=== PATIENT | male | born 1940 | race Caucasian/White ===

== ENCOUNTER → 2016-06-23 | Outpatient (REF) | payer MEDICARE, BC ==
[2016-06-23 18:13] LABS: ALBUMIN 3.9 GM/DL (3.2-5.2); ALBUMIN/GLOBULIN RATIO 1.26 (1.00-1.93); ALKALINE PHOSPHATASE 92 U/L (45-117); ALT/SGPT 46 U/L (12-78); ANION GAP 6 MEQ/L (8-16); AST/SGOT 15 U/L (15-37); BILIRUBIN,TOTAL 0.3 MG/DL (0.2-1.0); BLOOD UREA NITROGEN 22 MG/DL (7-18); CARBON DIOXIDE LEVEL 32 MEQ/L (21-32); CHLORIDE LEVEL 106 MEQ/L (98-107); CHOLESTEROL LEVEL 218 MG/DL (<200); CREATININE FOR GFR 0.74 MG/DL (0.70-1.30); GLOMERULAR FILTRATION RATE > 60.0 (>42); GLUCOSE, FASTING 99 MG/DL (83-110); MEAN CORPUSCULAR HEMOGLOBIN 31.7 pg (27.0-33.0); MEAN CORPUSCULAR HGB CONC 33.7 g/dl (32.0-36.5); MEAN CORPUSCULAR VOLUME 94.1 fl (80.0-96.0); POTASSIUM SERUM 4.8 MEQ/L (3.5-5.1); RED CELL DISTRIBUTION WIDTH 13.8 % (11.5-14.5); SODIUM LEVEL 144 MEQ/L (136-145); TRIGLYCERIDES LEVEL 111 MG/DL (<150); WHITE BLOOD COUNT 6.9 K/mm3 (4.0-10.0)
== END ==
LOC: M SFHCLERA 09:59
PROVIDERS: ATTEND Family Medicine
DX: I10 Essential (primary) hypertension (principal); E78.2 Mixed hyperlipidemia; M79.675 Pain in left toe(s)
CPT/HCPCS: 80053; 80061; 80185; 81001; 82043; 84550; 85027; G0463

== ENCOUNTER → 2016-09-21 | Outpatient (REF) | payer MEDICARE, BC ==
[2016-09-21 18:15] LABS: MEAN CORPUSCULAR HEMOGLOBIN 32.7 pg (27.0-33.0); MEAN CORPUSCULAR HGB CONC 33.5 g/dl (32.0-36.5); MEAN CORPUSCULAR VOLUME 97.6 fl (80.0-96.0); RED CELL DISTRIBUTION WIDTH 13.1 % (11.5-14.5); WHITE BLOOD COUNT 7.1 K/mm3 (4.0-10.0)
[2016-09-21 19:02] LABS: ALBUMIN 4.1 GM/DL (3.2-5.2); ALBUMIN/GLOBULIN RATIO 1.32 (1.00-1.93); ALKALINE PHOSPHATASE 88 U/L (45-117); ALT/SGPT 42 U/L (12-78); ANION GAP 5 MEQ/L (8-16); AST/SGOT 24 U/L (15-37); BILIRUBIN,TOTAL 0.3 MG/DL (0.2-1.0); BLOOD UREA NITROGEN 20 MG/DL (7-18); CALCIUM LEVEL 9.1 MG/DL (8.8-10.2); CARBON DIOXIDE LEVEL 35 MEQ/L (21-32); CHLORIDE LEVEL 103 MEQ/L (98-107); CHOLESTEROL LEVEL 235 MG/DL (<200); CREATININE FOR GFR 0.68 MG/DL (0.70-1.30); GLOMERULAR FILTRATION RATE > 60.0 (>42); GLUCOSE, FASTING 103 MG/DL (83-110); POTASSIUM SERUM 5.1 MEQ/L (3.5-5.1); SODIUM LEVEL 143 MEQ/L (136-145); TOTAL PROTEIN 7.2 GM/DL (6.4-8.2); TRIGLYCERIDES LEVEL 153 MG/DL (<150)
== END ==
LOC: M SFHCLERA 10:51
PROVIDERS: ATTEND Family Medicine
DX: E78.2 Mixed hyperlipidemia (principal); Z86.69 Personal history of other diseases of the nervous system and sense organs
CPT/HCPCS: 80053; 80061; 80185; 85027; G0463

== ENCOUNTER → 2016-11-09 | Outpatient (CLI) | payer MEDICARE, BC ==
[2016-11-09 16:59] LABS: BASO # 0.1 K/mm3 (0.0-0.2); BASO % 0.9 % (0.0-1.0); EOS # 0.5 K/mm3 (0.0-0.50); EOS % 6.2 % (0.0-3.0); LARGE UNSTAINED CELL # 0.1 K/mm3 (0.0-0.4); LARGE UNSTAINED CELL % 1.3 % (0.0-4.0); LYMPH # 2.3 K/mm3 (1.5-4.5); LYMPH % 27.8 % (24.0-44.0); MEAN CORPUSCULAR HEMOGLOBIN 33.1 pg (27.0-33.0); MEAN CORPUSCULAR HGB CONC 34.6 g/dl (32.0-36.5); MEAN CORPUSCULAR VOLUME 95.5 fl (80.0-96.0); MONO # 0.4 K/mm3 (0.0-0.8); MONO % 4.6 % (0.0-5.0); NEUTROPHILS # 4.8 K/mm3 (1.8-7.7); NEUTROPHILS % 59.1 % (36.0-66.0); PLATELET COUNT, AUTOMATED 222 k/mm3 (150-450)
[2016-11-09 17:10] LABS: ALBUMIN 3.8 GM/DL (3.2-5.2); ALBUMIN/GLOBULIN RATIO 1.15 (1.00-1.93); ALKALINE PHOSPHATASE 83 U/L (45-117); ALT/SGPT 52 U/L (12-78); ANION GAP 7 MEQ/L (8-16); AST/SGOT 29 U/L (15-37); BILIRUBIN,TOTAL 0.3 MG/DL (0.2-1.0); BLOOD UREA NITROGEN 18 MG/DL (7-18); CALCIUM LEVEL 8.5 MG/DL (8.8-10.2); CARBON DIOXIDE LEVEL 29 MEQ/L (21-32); CHLORIDE LEVEL 104 MEQ/L (98-107); CHOLESTEROL LEVEL 131 MG/DL (<200); CREATININE FOR GFR 0.74 MG/DL (0.70-1.30); GLOMERULAR FILTRATION RATE > 60.0 (>42); GLUCOSE, FASTING 91 MG/DL (83-110); SODIUM LEVEL 140 MEQ/L (136-145); TOTAL PROTEIN 7.1 GM/DL (6.4-8.2); TRIGLYCERIDES LEVEL 78 MG/DL (<150)
== END ==
LOC: M LRY 11:50
PROVIDERS: ATTEND Psychiatry & Neurology Neurology
DX: Z51.81 Encounter for therapeutic drug level monitoring (principal); Z79.899 Other long term (current) drug therapy; R56.9 Unspecified convulsions; E78.00 Pure hypercholesterolemia, unspecified; I63.9 Cerebral infarction, unspecified
CPT/HCPCS: 36415; 80053; 80061; 80185; 85025; G0463

== ENCOUNTER 2017-01-01 13:15 | Inpatient (IN) | payer MEDICARE, BC ==
[~2017-01-01] VITALS: Ht 165.1 cm; Wt 69.5 kg
[2017-01-01 14:38] LABS: BASO # 0.1 K/mm3 (0.0-0.2); BASO % 1.1 % (0.0-1.0); EOS # 0.4 K/mm3 (0.0-0.50); EOS % 7.3 % (0.0-3.0); LARGE UNSTAINED CELL # 0.2 K/mm3 (0.0-0.4); LARGE UNSTAINED CELL % 2.5 % (0.0-4.0); LYMPH # 1.5 K/mm3 (1.5-4.5); LYMPH % 24.4 % (24.0-44.0); MEAN CORPUSCULAR HEMOGLOBIN 32.7 pg (27.0-33.0); MEAN CORPUSCULAR HGB CONC 34.8 g/dl (32.0-36.5); MEAN CORPUSCULAR VOLUME 93.7 fl (80.0-96.0); MONO # 0.5 K/mm3 (0.0-0.8); MONO % 7.3 % (0.0-5.0); NEUTROPHILS # 3.6 K/mm3 (1.8-7.7); NEUTROPHILS % 57.4 % (36.0-66.0); PLATELET COUNT, AUTOMATED 227 k/mm3 (150-450); RED CELL DISTRIBUTION WIDTH 12.8 % (11.5-14.5); WHITE BLOOD COUNT 6.2 K/mm3 (4.0-10.0)
[2017-01-01 14:59] LABS: ALBUMIN 3.3 GM/DL (3.2-5.2); ALBUMIN/GLOBULIN RATIO 1.06 (1.00-1.93); ALKALINE PHOSPHATASE 97 U/L (45-117); ALT/SGPT 39 U/L (12-78); ANION GAP 6 MEQ/L (8-16); AST/SGOT 21 U/L (15-37); BILIRUBIN,DIRECT < 0.1 MG/DL (0.0-0.2); BILIRUBIN,TOTAL 0.2 MG/DL (0.2-1.0); BLOOD UREA NITROGEN 20 MG/DL (7-18); CALCIUM LEVEL 8.4 MG/DL (8.8-10.2); CARBON DIOXIDE LEVEL 30 MEQ/L (21-32); CHLORIDE LEVEL 104 MEQ/L (98-107); CREATININE FOR GFR 0.77 MG/DL (0.70-1.30); GLOMERULAR FILTRATION RATE > 60.0 (>42); GLUCOSE, FASTING 124 MG/DL (83-110); MAGNESIUM LEVEL 2.4 MG/DL (1.8-2.4); POTASSIUM SERUM 3.5 MEQ/L (3.5-5.1); SODIUM LEVEL 140 MEQ/L (136-145); TOTAL PROTEIN 6.4 GM/DL (6.4-8.2)
--- NOTE | 2017-01-01 18:10 | REPUSA ---
CLINICAL HISTORY: DIZZINESS, AMS, ATAXIA TECHNIQUE: MRI of the brain was performed without administration of intravenous contrast material. T1 spine echo, T2 fast spin echo, DWI and FLAIR sequences were obtained in sagittal, axial and coronal planes. FINDINGS: There is evidence of extensive encephalomalacia involving left temporal, parietal and frontal lobes w ith diffusely increase T2/Flair hyperintensity, T1 hypointensity and ex-vacuo dilatation of the right lateral ventricle, compatible with chronic infarct, left MCA distribution. The sella and parasellar regions are unremarkable in appearance. The corpus callosum and cerebellar tonsils are of normal con figuration and position. There are no intra or extra-axial collections. There is no mass effect or mi dline shift. There is no evidence of hematoma formation. There is no hydrocephalus. There is no restricted diffusion. There is evidence for generalized symmetrical dilatation of the ventricles and cortical sulci consist ent with parenchymal atrophy. There are bilateral periventricular T2 and FLAIR hyperintensities extending into centrum semi ovale c ompatible with chronic white matter ischemic disease. The brain stem shows no mass effects or hemorrhage. There are no cerebellopontine tumors. The acousti c nerves are symmetrical. No cerebellar intra-axial pathology delineated. The fourth ventricle and aq ueduct are normal. No abnormalities of the optic nerves are identified. There is no evidence of atrop hic or degenerative changes. No dural or subdural masses or collections are detected. The visualized arterial structures demonstrate normal appearing flow voids. The VII and VIII nerve bu ndles are visualized and are unremarkable in appearance. Mucosal thickening is seen involving all bilateral sinuses compatible with chronic pansinusitis. IMPRESSION: 1. Old left MCA infarct. 2. Generalized age-appropriate parenchymal atrophy. 3. Bilateral periventricular and subcortical white matter ischemic changes. 4. Chronic pansinusitis. Thank you for your kind referral of this patient.
--- NOTE | 2017-01-01 18:10 | REPUSA ---
CLINICAL HISTORY: -DIZZINESS, AMS, ATAXIA TECHNIQUE: Three dimensional feit-nx-dxkvim angiography is performed of the squaxin of [place]. The janiya dy was performed without IV contrast agent. FINDINGS: The supraclinoid portions of the internal carotid arteries are of normal shape. The normal bifurcation is seen. The middle cerebral arteries are unremarkable in appearance. The posterior circu lation is visualized and shows no evidence of occlusion or aneurysm formation. The basilar tip is see n and shows no aneurysm formation. There is no evidence of beading to suggest vasculitis. IMPRESSION: MRA of the squaxin of [place] is within normal limits. Thank you for your kind referral of this patient.
[2017-01-01 18:43] LABS: METHADONE URINE NEGATIVE (NEGATIVE)
[2017-01-01] MEDS ORDERED: ACETAMINOPHEN TAB 650MG DOSE (2X325MG) PO PRN (19:45)
[2017-01-01] MEDS ORDERED: GABA-282 PO (19:54)
[2017-01-01] MEDS ORDERED: ASPI1TAB15 PO (19:54)
[2017-01-01] MEDS ORDERED: ROPI1TAB PO (19:54)
[2017-01-01] MEDS ORDERED: SIMB1SUS OU (19:54)
[2017-01-01] MEDS ORDERED: NAME10TA PO (19:54)
[2017-01-01] MEDS ORDERED: IPRASOL4 INH (19:54)
[2017-01-01] MEDS ORDERED: BIMA01SOL OU (19:54)
[2017-01-01] MEDS ORDERED: ATOR80TA59 PO (19:54)
[2017-01-01] MEDS ORDERED: GALA12TA PO (19:54)
[2017-01-01] MEDS ORDERED: ALEV220T26 PO (19:54)
[2017-01-01] MEDS ORDERED: SPIR1CAP INH (19:54)
[2017-01-01] MEDS: cefTRIAXone SOD 2 GM in D5W MINI-BAG PLUS 50 ML IV SCH (20:00)
[2017-01-01] MEDS ORDERED: LevoFLOXacin IV 500 MG in APPROPRIATE DILUENT 1 EA IV SCH (20:00)
[2017-01-01] MEDS ORDERED: NS 1,000 ML IV SCH (20:00)
--- NOTE | 2017-01-01 20:06 | REP ---
CT BRAIN WITHOUT CONTRAST: CT brain is performed without IV contrast. I have no prior CT for comparison. There is a prior MRI of the brain 12/31/2014. There is moderate atrophy. There are again areas of encephalomalacia throughout the left cerebral hemisphere, most prominently in the left posterior parietal region and the left frontal region. Chronic periventricular small vessel ischemic changes and gliosis are again noted. There is no acute hemorrhage or midline shift. No extra-axial fluid collection is seen. There is evidence of prior surgery in the left orbital region. No acute skull fracture is seen. Scattered fluid is seen in the bilateral ethmoid sinuses. IMPRESSION: Chronic atrophy and old areas of encephalomalacia on the left. No acute hemorrhage. Bilateral ethmoid fluid. No acute findings. Signed by Bear Enrique MD 01/02/2017 01:05 P
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
[2017-01-01] MEDS ORDERED: IPRATROPIUM 0.5MG/ALBUTEROL 2.5MG INH SOL UD 3ML (DUONEB)(J7620) INH PRN (20:15)
[2017-01-01 21:30] VITALS: BP 157/73
[2017-01-01] MEDS: PHENYTOIN ER 100 MG CAP PO SCH (22:42)
[2017-01-01] MEDS: AZITHROMYCIN INJ 500 MG, VIAL MATE ADAPTER 1 EACH in D5W 250 ML IV SCH (22:42)
[2017-01-01] MEDS: rOPINIRole 1MG TAB PO SCH (22:42)
[2017-01-01] MEDS: GABAPENTIN 100 MG CAP PO SCH (22:43)
[2017-01-01] MEDS: HEPARIN SOD (PORCINE) 5000 UNITS/ML VIAL SQ SCH (22:43)
[2017-01-02] VITALS (7 sets, daily range): BP systolic 117–154; BP diastolic 57–76
--- NOTE | 2017-01-02 00:35 | REP ---
Clinical: Chest pain. Dyspnea. Rule out pneumonia . Comparison: 11/18/2014 . Findings: The mediastinum and cardiac silhouette are stable and within normal limits for portable technique. The lung tucker are clear without acute consolidation, effusion, or pneumothorax. Skeletal structures are intact. Chronic elevation of the right hemidiaphragm remains stable. Impression: No acute cardiopulmonary process appreciated. Signed by Cliff Montano MD 01/02/2017 12:27 A
[2017-01-02] MEDS: HEPARIN SOD (PORCINE) 5000 UNITS/ML VIAL SQ SCH ×3 (05:05→20:30)
[2017-01-02 06:16] LABS: BASO # 0.1 K/mm3 (0.0-0.2); BASO % 0.9 % (0.0-1.0); EOS # 0.4 K/mm3 (0.0-0.50); EOS % 5.3 % (0.0-3.0); LARGE UNSTAINED CELL # 0.1 K/mm3 (0.0-0.4); LARGE UNSTAINED CELL % 1.6 % (0.0-4.0); LYMPH # 1.7 K/mm3 (1.5-4.5); LYMPH % 22.1 % (24.0-44.0); MEAN CORPUSCULAR HEMOGLOBIN 33.1 pg (27.0-33.0); MEAN CORPUSCULAR HGB CONC 34.8 g/dl (32.0-36.5); MONO # 0.5 K/mm3 (0.0-0.8); MONO % 6.4 % (0.0-5.0); NEUTROPHILS # 4.5 K/mm3 (1.8-7.7); NEUTROPHILS % 63.6 % (36.0-66.0); PLATELET COUNT, AUTOMATED 219 k/mm3 (150-450); RED CELL DISTRIBUTION WIDTH 13.1 % (11.5-14.5); WHITE BLOOD COUNT 7.1 K/mm3 (4.0-10.0)
[2017-01-02 06:31] LABS: ALBUMIN 3.2 GM/DL (3.2-5.2); ALBUMIN/GLOBULIN RATIO 0.94 (1.00-1.93); ALKALINE PHOSPHATASE 93 U/L (45-117); ALT/SGPT 35 U/L (12-78); ANION GAP 5 MEQ/L (8-16); AST/SGOT 15 U/L (15-37); BILIRUBIN,TOTAL 0.3 MG/DL (0.2-1.0); BLOOD UREA NITROGEN 16 MG/DL (7-18); CALCIUM LEVEL 8.6 MG/DL (8.8-10.2); CARBON DIOXIDE LEVEL 31 MEQ/L (21-32); CHLORIDE LEVEL 106 MEQ/L (98-107); CREATININE FOR GFR 0.62 MG/DL (0.70-1.30); GLOMERULAR FILTRATION RATE > 60.0 (>42); GLUCOSE, FASTING 105 MG/DL (83-110); MAGNESIUM LEVEL 2.2 MG/DL (1.8-2.4); POTASSIUM SERUM 3.8 MEQ/L (3.5-5.1); SODIUM LEVEL 142 MEQ/L (136-145); TOTAL PROTEIN 6.6 GM/DL (6.4-8.2)
[2017-01-02] MEDS: TIOTROPIUM INHALER/CAPSULE (SPIRIVA) INH SCH ×2 (07:56→09:09)
--- NOTE | 2017-01-02 08:19 | ECGEPIP ---
Stationary ECG Study [facility] - ED Test Date: 2017-01-01 Pat Name: TOMAS ALEXIS Department: Room: - Gender: M Manager Heart: JOE : 1940 Requested By: Lisha Burnham Order Number: [id number] Reading MD: Filiberto Bee Measurements Intervals [place] Rate: 66 P: 49 KS: 186 QRS: 40 QRSD: 116 T: 39 QT: 439 QTc: 461 Interpretive Statements SINUS RHYTHM MODERATE INTRAVENTRICULAR CONDUCTION DELAY POSSIBLE INFERIOR INFARCT Electronically Signed On 01-02-2017 8:18:32 EDT by Filiberto Bee
[2017-01-02] MEDS: ASPIRIN 81 MG ENTERIC TAB PO SCH (09:26)
[2017-01-02] MEDS: GABAPENTIN 100 MG CAP PO SCH ×3 (09:26→20:29)
[2017-01-02] MEDS: ATORVASTATIN 20 MG TAB PO SCH (09:26)
[2017-01-02] MEDS: MEMANTINE 5MG TABLET (NAMENDA) PO SCH (09:27)
[2017-01-02] MEDS: PHENYTOIN ER 100 MG CAP PO SCH ×2 (09:27→20:28)
[2017-01-02] MEDS: rOPINIRole 1MG TAB PO SCH ×2 (09:27→20:28)
[2017-01-02 10:00] LABS: FOLATE > 24.0 NG/ML (>5.4); VITAMIN B12 LEVEL 321 PG/ML (247-911)
--- NOTE | 2017-01-02 11:46 | IPN ---
DATE: 01/02/2017 Time patient was seen was 10:00 a.m. Patient has been seen and examined at the bedside. No acute events overnight. The patient stated that he has been feeling less dizzy recently. He denies any headache or any blurred vision, any weakness on any side of his body. Denies any trouble swallowing, having normal bowel movements and urinates normally. Denies any polyuria, urgency or dysuria. PHYSICAL EXAMINATION: VITAL SIGNS: Temperature 97.5, pulse 73, respirations 17, blood pressure 152/76 , oxygen was saturating at 93% on room air. GENERAL: Patient is a pleasant elderly male who was alert, awake and oriented times three. He does not appear to be in distress. Sitting in comfortably in his bed. HEENT: Normocephalic, atraumatic. Both of the patient's eyes appear to be deviated to the center, according to the patient since childhood. Pupils were equal, round and reactive to light. Extraocular motors appear to be better on the right side. Mucosal membranes moist. NECK: Supple. No neck lymphadenopathy. CARDIOVASCULAR: Regular rate and rhythm, normal S1 and S2. Distant heart sounds due to increased AP diameter. LUNGS: Clear to auscultation bilaterally. No wheezing, rales or rhonchi. ABDOMEN: Positive bowel sounds. Soft, nontender, nondistended. No peritoneal signs. No ecchymosis. EXTREMITIES: No edema, clubbing or cyanosis. SKIN: Warm and dry. NEURO: Cranial nerves II through XII intact except the chronic eyes deviated to the center. LABORATORIES: WBC 7.1, hemoglobin 14.1, hematocrit 41.4 with platelet count of 219, and MCV of 95. Sodium 142, potassium 3.8, chloride 106, bicarb 31, BUN 16, creatinine 0.62, GFR greater than 60, fasting glucose 105, calcium 8.6, magnesium 2.2, total bilirubin is 0.3, AST 15, ALT 35, alkaline phosphatase 93. Ammonia level was slightly elevated yesterday, which was 45. Protein 6.6, albumin 3.2. Urinalysis shows a small amorphous sediment. Toxicology shows phenytoin low at 6.5. Syphilis has been nonreactive. Lyme disease IgG to IgM ratio is pending. Lyme IgG 93, band is pending. Blood cultures times two are pending. Portable chest x-ray does not show any acute processes from yesterday. MRI yesterday shows old left MCA infarct, generalized age appropriate parenchymal atrophy, bilateral periventricular and subcortical white matter ischemic changes. Chronic pansinusitis. ASSESSMENT/PLAN: 76-year-old male with a past medical history of hypertension, hyperlipidemia, recurrent cerebrovascular accidents (CVAs), seizures on dilantin, macular degeneration, glaucoma and dementia, and also eyes deviated to the center since 3 years old, who presented with: 1. Dizziness, confusion and slurred speech, metabolic encephalopathy possibly secondary to infection, Lyme disease. At this point there is no indication for pneumonia. Chest x-ray has been clear. The patient's Lyme titer is pending. MRI does show chronic pansinusitis and there was an old left sided MCA infarction shown on the MRI of the head. The patient is currently on Rocephin and azithromycin for possible pneumonia, however due to chest x-ray has been negative, will consider discontinuing the antibiotics once the blood culture comes back negative. So far, the patient does not have any leukocytosis or fever. The patient's urinalysis has been negative as well. TSH, free T4, T3, syphilis, B12 , and folate, have been negative as well. The patient's gabapentin was reduced from 300 three times a day to 100 three times a day on admission. In addition, admission physician also discussed with Dr. Lito Bah on admission. The patient has workup for reversible causes of encephalopathy. We have also added a carotid Doppler ultrasound this morning. Physical therapy has been started as well. betsy Knott neurology was officially consulted later in the morning. We appreciate his help. 2. Normocytic anemia. Hemoglobin appears to be at baseline. 3. Hypertension. Blood pressure appears to be controlled. 4. History of dementia. Continue memantine and ropinirole. 5. History of recurrent CVAs. Currently, the patient does not have any new neurological findings. The confusion, slurred speech and dizziness has resolved. 6. History of seizures. Continue dilantin. It was sub therapeutic on the last check. 7. History of chronic obstructive pulmonary disease (COPD). Continue Spiriva and DuoNebs. Patient is also on IV azithromycin for now due to possible pneumonia; however, will likely discontinue soon after blood culture comes back. 8. Deep vein thrombosis (DVT) prophylaxis. On sequential compression devices (SCD) and heparin. DISPOSITION: At this point, the patient has a negative workup. Lyme disease workup is pending. There is no acute infarction shown on MRI. The patient's x-ray and urinalysis appears to be negative. Once the patient's blood culture comes back negative, will discontinue antibiotics and will follow neurology recommendations. Patient has been discussed with attending doctor, Dr. Whelan. I have both independently examined this patient as well as reviewed the dictated note. I have discussed in detail with the resident the findings and plan of treatment as documented in the residents note. I will continue to follow the patient and offer further guidance to the patients care as necessary during this hospital stay. GIANNA
[2017-01-02] MEDS: MECLIZINE 12.5 MG TAB PO SCH (20:28)
[2017-01-02] MEDS: AZITHROMYCIN INJ 500 MG, VIAL MATE ADAPTER 1 EACH in D5W 250 ML IV SCH (20:29)
[2017-01-02] MEDS: cefTRIAXone SOD 2 GM in D5W MINI-BAG PLUS 50 ML IV SCH (20:29)
[2017-01-03 02:00] VITALS: BP 144/79
--- NOTE | 2017-01-03 05:15 | REP ---
Clinical: Transient ischemic attack . Technique: Enrique scale and color Doppler evaluation using linear high frequency transducer Findings: Two-dimensional enrique scale and color images demonstrate moderate to significant bilateral mixed atheromatous plaquing along the common carotid arteries extending to the carotid bulbs and proximal/mid internal carotid arteries (left greater than right). Color Doppler interrogation demonstrates normal arterial wave patterns with the areas of increased velocities and moderate to significant spectral broadening. Normal flow direction is appreciated in the bilateral vertebral arteries. RIGHT (cm/s) LEFT (cm/s) ICA peak systolic velocity 79.0 166.2 ICA diastolic velocity 24.9 53.4 ECA peak systolic velocity 70.0 76.0 CCA peak systolic velocity 89.5 91.4 ICA/CCA ratio 0.88 1.82 Impression: Based on set standards visual inspection, narrowing falls within the 50-69% range through the left carotid bulb/internal carotid artery and approaches the 50% range through the right carotid bulb/internal carotid artery. Signed by Cliff Montano MD 01/03/2017 05:07 A
[2017-01-03 05:45] LABS: BASO # 0.1 K/mm3 (0.0-0.2); BASO % 1.2 % (0.0-1.0); EOS # 0.5 K/mm3 (0.0-0.50); EOS % 7.2 % (0.0-3.0); LARGE UNSTAINED CELL # 0.1 K/mm3 (0.0-0.4); LARGE UNSTAINED CELL % 1.9 % (0.0-4.0); LYMPH # 1.8 K/mm3 (1.5-4.5); LYMPH % 25.4 % (24.0-44.0); MEAN CORPUSCULAR HEMOGLOBIN 33.6 pg (27.0-33.0); MEAN CORPUSCULAR HGB CONC 35.1 g/dl (32.0-36.5); MEAN CORPUSCULAR VOLUME 95.7 fl (80.0-96.0); MONO # 0.4 K/mm3 (0.0-0.8); MONO % 5.7 % (0.0-5.0); NEUTROPHILS % 58.7 % (36.0-66.0); PLATELET COUNT, AUTOMATED 225 k/mm3 (150-450); RED CELL DISTRIBUTION WIDTH 13.2 % (11.5-14.5); WHITE BLOOD COUNT 6.8 K/mm3 (4.0-10.0)
[2017-01-03 06:00] VITALS: BP 139/69
[2017-01-03] MEDS: HEPARIN SOD (PORCINE) 5000 UNITS/ML VIAL SQ SCH ×2 (06:18→13:42)
[2017-01-03] MEDS: TIOTROPIUM INHALER/CAPSULE (SPIRIVA) INH SCH (07:12)
[2017-01-03] MEDS: ATORVASTATIN 20 MG TAB PO SCH (08:31)
[2017-01-03] MEDS: MEMANTINE 5MG TABLET (NAMENDA) PO SCH (08:31)
[2017-01-03] MEDS: rOPINIRole 1MG TAB PO SCH (08:31)
[2017-01-03 08:32] LABS: ALBUMIN 3.2 GM/DL (3.2-5.2); ALBUMIN/GLOBULIN RATIO 0.84 (1.00-1.93); ALKALINE PHOSPHATASE 99 U/L (45-117); ALT/SGPT 35 U/L (12-78); ANION GAP 7 MEQ/L (8-16); AST/SGOT 23 U/L (15-37); BILIRUBIN,TOTAL 0.2 MG/DL (0.2-1.0); BLOOD UREA NITROGEN 15 MG/DL (7-18); CALCIUM LEVEL 8.8 MG/DL (8.8-10.2); CARBON DIOXIDE LEVEL 27 MEQ/L (21-32); CHLORIDE LEVEL 104 MEQ/L (98-107); CREATININE FOR GFR 0.63 MG/DL (0.70-1.30); GLOMERULAR FILTRATION RATE > 60.0 (>42); GLUCOSE, FASTING 105 MG/DL (83-110); MAGNESIUM LEVEL 2.3 MG/DL (1.8-2.4); SODIUM LEVEL 138 MEQ/L (136-145)
[2017-01-03] MEDS: GABAPENTIN 100 MG CAP PO SCH (08:32)
[2017-01-03] MEDS: MECLIZINE 12.5 MG TAB PO SCH (08:32)
[2017-01-03] MEDS: ASPIRIN 81 MG ENTERIC TAB PO SCH (08:32)
[2017-01-03] MEDS: PHENYTOIN ER 100 MG CAP PO SCH (08:32)
[2017-01-03 10:00] VITALS: BP 134/60
[2017-01-03] MEDS ORDERED: DILA100C PO (12:34)
[2017-01-03] MEDS ORDERED: MECL12.575 PO (12:34)
[2017-01-03] MEDS ORDERED: NEUR100C PO (12:44)
--- NOTE | 2017-01-03 13:44 | DSES ---
DATE OF ADMISSION: 01/01/2017 DATE OF DISCHARGE: 01/03/2017 Time patient was seen was at 12 p.m. ADMISSION DIAGNOSES: 1. Acute metabolic encephalopathy. 2. Normocytic anemia. 3. Hypertension. 4. Hyperlipidemia. 5. History of cerebrovascular accident (CVA). 6. History of seizure. 7. History of Parkinson's and dementia. 8. History of chronic obstructive pulmonary disease (COPD). DISCHARGE DIAGNOSES: 1. Dizziness, confusion, and slurred speech. Likely secondary to metabolic encephalopathy. 2. Normocytic anemia. 3. Hypertension. 4. History of dementia. 5. History of recurrent cerebrovascular accident. 6. History of seizures. 7. Chronic obstructive pulmonary disease. 8. The patient also has carotid stenosis. SURFACE SUPERVISOR: Is Dr. Mondragon from neurology. PROCEDURES AND IMAGINGS: On 12/30/2016, the patient had a head CT without contrast, which shows chronic atrophy and old area of encephalomalacia on the left side. No acute hemorrhage. Bilateral ethmoid fluid. No acute findings. On 01/01/2017, the patient had an MRA of the head, shows MRA of the [place] of [place] is within normal limits. At this time, the patient also had an MRI of the head without contrast, shows old left middle cerebral artery (MCA) infarct, generalized age-appropriate parenchymal atrophy, bilateral periventricular and subcortical white matter ischemic changes, chronic pansinusitis. Portable x-ray shows the patient has no acute cardiopulmonary process. On 01/02/2017, the patient had a carotid Doppler of the bilateral carotids, shows narrowing falls within the 50% to 69% range through the left carotid bulb/internal carotid artery and approaching the 50% range through the right carotid bulb/internal carotid artery. A 76-year-old male with past medical history of hypertension, hyperlipidemia, CVA, seizure, macular degeneration, glaucoma, dementia, presented to the emergency room (ER) with complaint of slurred speech and confusion. Per the patient's daughter and at bedside to provide detailed history, he has been noted to have unstable gait since . They noticed he was more confused and could not remember details of the day earlier. One month ago, he was in the ER for confusion and found to have a Dilantin toxicity. His dose was adjusted, and his symptoms resolved, and he was sent home. Today, he denies any fever, chills. No nausea, vomiting, chest pain, shortness of breath, or palpitations. No abdominal pain, constipation, or urinary discomfort. He does note a productive cough with green sputum one month ago and does admit to some loose stools were noticed, and his diet has been fine. He reports 5 pounds of weight loss in two months, however. HOSPITAL COURSE: On day of admission, the patient had a CT and MRA of the head ordered and does not show any acute infarctions. The patient's Dilantin level was found to be low. The patient's gabapentin was reduced from 300 three times a day to 100 three times a day. The patient was on Rocephin and azithromycin initially, and it was discontinued after a negative blood culture. Neurologist, Dr. Mondragon, was consulted and recommended to keep the Dilantin dose the same and added meclizine 12.5 mg by mouth twice a day to the patient's medications. On 01/03/2017, the patient passed physical therapy, and Dr. Mondragon was contacted and agreed that the patient can be discharged. DISCHARGE CONDITION: Stable. Discharged to home. MEDICATIONS: Including new prescriptions: - gabapentin 100 mg three times a day - meclizine 12.5 mg one tablet by mouth twice a day - phenytoin 200 mg one tablet by mouth twice a day Continued home medications including: - DuoNebs one inhalation every 4 hours as needed - aspirin 81 mg one tablet by mouth every day - atorvastatin 80 mg one tablet by mouth every day - Lumigan one drop each eye nightly - galantamine 24 mg one tablet by mouth every day - memantine 20 mg one tablet by mouth every day - naproxen 220 mg one tablet by mouth every 8 hours as needed - ropinirole 1 mg one tablet by mouth twice a day - Simbrinza eyedrop each eye every day - Spiriva one inhalation every day Stopped medications including: - gabapentin 300 mg by mouth every day FOLLOWUP: The patient should followup with primary care provider, Dr. Wagner, as soon as possible, and the patient should followup with neurologist, Dr. Mondragon, within 2-4 weeks. ADDITIONAL INSTRUCTIONS: The patient should avoid driving and should be under care of a family relative for the next few days. If the patient has any additional dizziness or neurological findings, he should go to the emergency room or call primary care provider. The patient has been discussed with attending doctor, Dr. Rodriguez. My preceptor for this patient encounter was Dr. Naveed Rodriguez. The preceptor was physically present in the building during the encounter and was fully available. As needed, all aspects of the patient interview, examination, medical decision making process, and medical care plan development were reviewed and approved by the preceptor. The preceptor is aware and concurs with the plan as stated in the body of this note and will attest to such by his/her cosignature. Edited: roger 01/05/2017 1517 MTDD
[2017-01-04 00:09] LABS: IgG P18 AB Absent (.); IgG P23 AB Absent (.); IgG P28 AB Absent (.); IgG P30 AB Absent (.); IgG P41 AB Absent (.); IgG P45 AB Absent (.); IgG P58 AB Absent (.); IgG P66 AB Absent (.); IgG P93 AB Absent (.); IgM P39 AB Absent (.); IgM P41 AB Absent (.); Lyme Disease IgG/IgM Antibodie <0.91 ISR (0.00-0.90); Lyme Disease IgM Ab Quantitati <0.80 index (0.00-0.79)
== END 2017-01-03 14:31 | disposition home or self-care (01) | DRG 72 ==
LOC: M ED 14:57 → M ED INP 19:36 → M MSPAV 21:28
PROVIDERS: ADMIT Internal Medicine; ATTEND Internal Medicine
DX: G93.41 Metabolic encephalopathy (principal); F03.90 Unspecified dementia, unspecified severity, without behavioral disturbance, psychotic disturbance, mood disturbance, and anxiety; G20 Parkinson's disease; J44.9 Chronic obstructive pulmonary disease, unspecified; D64.9 Anemia, unspecified; I10 Essential (primary) hypertension; I65.23 Occlusion and stenosis of bilateral carotid arteries; Z86.73 Personal history of transient ischemic attack (TIA), and cerebral infarction without residual deficits; E78.5 Hyperlipidemia, unspecified; H40.9 Unspecified glaucoma; H35.30 Unspecified macular degeneration; Z79.82 Long term (current) use of aspirin; Z79.899 Other long term (current) drug therapy; Z88.8 Allergy status to other drugs, medicaments and biological substances; Z87.891 Personal history of nicotine dependence

== ENCOUNTER → 2017-01-12 | Outpatient (REF) | payer OTHER ==
[~2017-01-12] MED LIST: ACET30TAB PO; ALEV220T26 PO; ASPI1TAB15 PO; ATOR80TA59 PO; BIMA01SOL OU; DILA100C PO; GABA-282 PO; GALA12TA PO; IPRASOL4 INH; MECL12.575 PO; NAME10TA PO; NEUR100C PO; ROPI1TAB PO; SIMB1SUS OU; SPIR1CAP INH
[2017-01-12 21:04] LABS: MEAN CORPUSCULAR HEMOGLOBIN 32.2 pg (27.0-33.0); MEAN CORPUSCULAR HGB CONC 33.7 g/dl (32.0-36.5); MEAN CORPUSCULAR VOLUME 95.6 fl (80.0-96.0); MICROSCOPIC INDICATED? MAN YES (NO); RED CELL DISTRIBUTION WIDTH 13.3 % (11.5-14.5); WHITE BLOOD COUNT 7.7 K/mm3 (4.0-10.0)
[2017-01-12 21:08] LABS: ALBUMIN 3.5 GM/DL (3.2-5.2); ALBUMIN/GLOBULIN RATIO 1.17 (1.00-1.93); ALKALINE PHOSPHATASE 90 U/L (45-117); ALT/SGPT 35 U/L (12-78); ANION GAP 8 MEQ/L (8-16); AST/SGOT 23 U/L (15-37); BILIRUBIN,TOTAL 0.2 MG/DL (0.2-1.0); BLOOD UREA NITROGEN 18 MG/DL (7-18); CALCIUM LEVEL 8.9 MG/DL (8.8-10.2); CARBON DIOXIDE LEVEL 31 MEQ/L (21-32); CHLORIDE LEVEL 104 MEQ/L (98-107); CREATININE FOR GFR 0.75 MG/DL (0.70-1.30); FREE T4 0.92 NG/DL (0.76-1.46); GLOMERULAR FILTRATION RATE > 60.0 (>42); GLUCOSE, FASTING 75 MG/DL (83-110); SODIUM LEVEL 143 MEQ/L (136-145); TOTAL PROTEIN 6.5 GM/DL (6.4-8.2)
[2017-01-12 21:23] LABS: BACTERIA, URINE NONE SEEN; SQUAMOUS EPITHELIAL CELL URINE LARGE AMOUNT /hpf (SMALL AMT)
[2017-01-12 21:24] LABS: HYALINE CAST, URINE 0-1 /lpf (0-1); MICROSCOPIC EXAM PERFORMED
== END ==
LOC: M SFHCLERA 14:20
PROVIDERS: ATTEND Family Medicine
DX: R42 Dizziness and giddiness (principal)
CPT/HCPCS: 80053; 80185; 81000; 81015; 84439; 84443; 85027; 87086; G0463

== ENCOUNTER 2017-02-22 20:38 | Emergency (ER) | payer OTHER ==
[~2017-02-22] VITALS: Ht 170.2 cm; Wt 70.5 kg
[~2017-02-22 20:38] MED LIST changes: -ACET30TAB PO
--- NOTE | 2017-02-22 23:10 | REPUSA ---
Clinical history: Pain, swelling. Findings: The right common femoral, superficial femoral, popliteal, and other deep venous structures compress normally and demonstrate normal color Doppler flow. Normal venous waveforms with augmentatio n are seen. Varicose veins are seen in the medial aspect of the knee joint. Impression: No evidence of deep vein thrombosis in the right femoral popliteal venous system.
[2017-02-22] MEDS ORDERED: ACET30TAB PO (23:35)
[2017-02-22] MEDS ORDERED: ACETAMINOPH W/CODEINE #3 TAB UD PO ONE (23:45)
[2017-02-23 00:25] VITALS: BP 144/70
--- NOTE | 2017-02-23 07:52 | REP ---
Clinical: Pain. Technique: AP and frog lateral views of the right femur. Findings: Evidence for prior open reduction and fixation for femoral neck fracture. Degenerative changes at the hip and knee joint are appreciated. No acute fracture dislocation. Surrounding soft tissues are normal. Impression: Degenerative changes at the hip and knee. No acute fracture or dislocation. Signed by Cliff Montano MD 02/23/2017 07:44 A
== END 2017-02-23 00:27 | disposition home or self-care (01) ==
LOC: M ED 20:38
DX: M79.604 Pain in right leg (principal); I10 Essential (primary) hypertension; R56.9 Unspecified convulsions; G30.9 Alzheimer's disease, unspecified; Z86.73 Personal history of transient ischemic attack (TIA), and cerebral infarction without residual deficits; Z85.820 Personal history of malignant melanoma of skin; Z79.899 Other long term (current) drug therapy; Z79.82 Long term (current) use of aspirin; Z88.8 Allergy status to other drugs, medicaments and biological substances; Z87.891 Personal history of nicotine dependence

== ENCOUNTER → 2017-03-10 | Outpatient (CLI) | payer OTHER ==
[~2017-03-10] MED LIST changes: +ACET30TAB PO
--- NOTE | 2017-03-10 17:00 | REP ---
MRI RIGHT HIP: TECHNIQUE: Coronal T1, STIR through the pelvis, T2 fat sat right hip all three planes, axial oblique proton density fat sat right hip. There is metallic internal fixation in the proximal right femur. This causes extensive artifact and obscures the hip joint. The right femur is also obscured by this artifact. Moderate to large spur is seen at the superolateral acetabulum. There are mild degenerative changes at the left hip joint with chondromalacia noted. There is probably a superior labral tear on the left with a small paralabral cyst measuring about 5 mm in diameter. Signed by Bear Enrique MD 03/10/2017 05:24 P
== END ==
LOC: M RAD 14:14
PROVIDERS: ATTEND Family Medicine
DX: M16.10 Unilateral primary osteoarthritis, unspecified hip (principal); M62.838 Other muscle spasm; M25.551 Pain in right hip; Z96.649 Presence of unspecified artificial hip joint

== ENCOUNTER → 2017-05-29 | Outpatient (REF) | payer OTHER | LOC: M SFHCLERA 11:52 | PROVIDERS: ATTEND Family Medicine | DX: R42 Dizziness and giddiness (principal); G40.909 Epilepsy, unspecified, not intractable, without status epilepticus ==

== ENCOUNTER → 2017-06-13 | Outpatient (REF) | payer MEDICARE ==
[2017-06-13 20:29] LABS: PHENYTOIN (DILANTIN) 9.1 UG/ML (10.0-20.0)
== END ==
LOC: M SFHCLERA 16:26
DX: G40.909 Epilepsy, unspecified, not intractable, without status epilepticus (principal)
CPT/HCPCS: 80185

== ENCOUNTER → 2017-07-07 | Outpatient (REF) | payer MEDICARE | LOC: M SFHCLERA 12:53 | DX: G40.909 Epilepsy, unspecified, not intractable, without status epilepticus (principal) | CPT/HCPCS: 80185 ==

== ENCOUNTER → 2018-03-27 | Outpatient (REF) | payer MEDICARE ==
[2018-03-27 17:40] LABS: BASO # 0.1 10^3/uL (0.0-0.2); BASO % 1.3 % (0.0-1.0); EOS # 0.4 10^3/uL (0.0-0.50); HEMATOCRIT 46.5 % (42.0-52.0); HEMOGLOBIN 15.3 g/dl (13.5-17.5); IMMATURE GRANULOCYTE % 0.1 % (0-3.0); LYMPH # 2.2 10^3/uL (1.5-4.5); LYMPH % 29.4 % (24.0-44.0); MEAN CORPUSCULAR HEMOGLOBIN 31.8 pg (27.0-33.0); MEAN CORPUSCULAR HGB CONC 32.9 g/dl (32.0-36.5); MEAN CORPUSCULAR VOLUME 96.7 fl (80.0-96.0); MONO # 0.4 10^3/uL (0.0-0.8); MONO % 5.1 % (0.0-5.0); NEUTROPHILS # 4.5 10^3/uL (1.8-7.7); NEUTROPHILS % 59.1 % (36.0-66.0); PLATELET COUNT, AUTOMATED 245 10^3/uL (150-450); RED BLOOD COUNT 4.81 10^6/uL (4.30-6.10); RED CELL DISTRIBUTION WIDTH 13.4 % (11.5-14.5); WHITE BLOOD COUNT 7.6 10^3/uL (4.0-10.0)
[2018-03-27 17:49] LABS: ALBUMIN 3.9 GM/DL (3.2-5.2); ALBUMIN/GLOBULIN RATIO 1.26 (1.00-1.93); ALKALINE PHOSPHATASE 81 U/L (45-117); ALT/SGPT 49 U/L (12-78); ANION GAP 5 MEQ/L (8-16); AST/SGOT 22 U/L (7-37); BILIRUBIN,TOTAL 0.3 MG/DL (0.2-1.0); BLOOD UREA NITROGEN 17 MG/DL (7-18); CALCIUM LEVEL 8.9 MG/DL (8.8-10.2); CARBON DIOXIDE LEVEL 34 MEQ/L (21-32); CHLORIDE LEVEL 104 MEQ/L (98-107); CREATININE FOR GFR 0.76 MG/DL (0.70-1.30); GLOMERULAR FILTRATION RATE > 60.0 (>42); GLUCOSE, FASTING 101 MG/DL (70-100); PHENYTOIN (DILANTIN) 9.6 UG/ML (10.0-20.0); POTASSIUM SERUM 4.4 MEQ/L (3.5-5.1); SODIUM LEVEL 143 MEQ/L (136-145)
== END ==
LOC: M LABNEURO 17:19
DX: G40.909 Epilepsy, unspecified, not intractable, without status epilepticus (principal)
CPT/HCPCS: 80185

== ENCOUNTER → 2018-05-02 | Outpatient (REF) | payer MEDICARE | LOC: M SFHCPLAZ 11:47 | DX: C44.329 Squamous cell carcinoma of skin of other parts of face (principal); D04.39 Carcinoma in situ of skin of other parts of face | CPT/HCPCS: 88305 ==

== ENCOUNTER → 2018-05-24 | Outpatient (REF) | payer MEDICARE | LOC: M SFHCPLAZ 05-25 11:34 | DX: C44.329 Squamous cell carcinoma of skin of other parts of face (principal); L57.0 Actinic keratosis; D23.5 Other benign neoplasm of skin of trunk | CPT/HCPCS: 88305 ==

== ENCOUNTER → 2018-06-26 | Outpatient (REF) | payer MEDICARE ==
[~2018-06-26] MED LIST changes: -GABA-282 PO; +GABA-843 PO; +IPRA0.00 INH; -IPRASOL4 INH
[2018-06-26 17:11] LABS: BASO # 0.1 10^3/uL (0.0-0.2); EOS # 0.5 10^3/uL (0.0-0.50); EOS % 5.8 % (0.0-3.0); HEMATOCRIT 44.8 % (42.0-52.0); HEMOGLOBIN 15.1 g/dl (13.5-17.5); LYMPH # 2.5 10^3/uL (1.5-4.5); LYMPH % 29.1 % (24.0-44.0); MEAN CORPUSCULAR HEMOGLOBIN 32.1 pg (27.0-33.0); MEAN CORPUSCULAR HGB CONC 33.7 g/dl (32.0-36.5); MEAN CORPUSCULAR VOLUME 95.1 fl (80.0-96.0); MONO # 0.5 10^3/uL (0.0-0.8); MONO % 5.7 % (0.0-5.0); NEUTROPHILS # 5.1 10^3/uL (1.8-7.7); NEUTROPHILS % 58.2 % (36.0-66.0); PLATELET COUNT, AUTOMATED 212 10^3/uL (150-450); RED BLOOD COUNT 4.71 10^6/uL (4.30-6.10); WHITE BLOOD COUNT 8.7 10^3/uL (4.0-10.0)
[2018-06-26 17:30] LABS: ALBUMIN 3.8 GM/DL (3.2-5.2); ALT/SGPT 49 U/L (12-78); BILIRUBIN,TOTAL 0.3 MG/DL (0.2-1.0); BLOOD UREA NITROGEN 13 MG/DL (7-18); CALCIUM LEVEL 9.6 MG/DL (8.8-10.2); CARBON DIOXIDE LEVEL 32 MEQ/L (21-32); CHLORIDE LEVEL 104 MEQ/L (98-107); CHOLESTEROL LEVEL 198 MG/DL (<200); CREATININE FOR GFR 0.67 MG/DL (0.70-1.30); GLOMERULAR FILTRATION RATE > 60.0 (>42); GLUCOSE, FASTING 90 MG/DL (70-100); HDL CHOLESTEROL 44 MG/DL (>40); LDL CHOLESTEROL 125 MG/DL (<100); NON-HDL-C 154 MG/DL; PHENYTOIN (DILANTIN) 5.5 UG/ML (10.0-20.0); POTASSIUM SERUM 4.9 MEQ/L (3.5-5.1); SODIUM LEVEL 143 MEQ/L (136-145); TOTAL PROTEIN 7.3 GM/DL (6.4-8.2); TRIGLYCERIDES LEVEL 146 MG/DL (<150)
== END ==
LOC: M SFHCLERA 13:59
PROVIDERS: ATTEND Family Medicine
DX: I65.22 Occlusion and stenosis of left carotid artery (principal); G40.909 Epilepsy, unspecified, not intractable, without status epilepticus

== ENCOUNTER → 2018-07-10 | Outpatient (REF) | payer MEDICARE | LOC: M SFHCPLAZ 10:00 | PROVIDERS: ATTEND Dermatology | DX: L57.0 Actinic keratosis (principal) ==

== ENCOUNTER 2018-09-02 10:45 | Emergency (ER) | payer MEDICARE ==
[~2018-09-02] VITALS: Ht 172.7 cm; Wt 68.2 kg
[~2018-09-02 10:45] MED LIST changes: +ACET-716 PO; -ACET30TAB PO
[2018-09-02 11:22] LABS: BASO # 0.1 10^3/uL (0.0-0.2); BASO % 0.8 % (0.0-1.0); EOS % 0.2 % (0.0-3.0); HEMOGLOBIN 14.9 g/dl (13.5-17.5); LYMPH # 1.2 10^3/uL (1.5-4.5); LYMPH % 11.2 % (24.0-44.0); MEAN CORPUSCULAR HEMOGLOBIN 31.5 pg (27.0-33.0); MEAN CORPUSCULAR HGB CONC 33.9 g/dl (32.0-36.5); MONO # 0.3 10^3/uL (0.0-0.8); MONO % 2.3 % (0.0-5.0); NEUTROPHILS # 9.2 10^3/uL (1.8-7.7); NEUTROPHILS % 85.2 % (36.0-66.0); PLATELET COUNT, AUTOMATED 213 10^3/uL (150-450); RED BLOOD COUNT 4.73 10^6/uL (4.30-6.10); WHITE BLOOD COUNT 10.8 10^3/uL (4.0-10.0)
[2018-09-02] MEDS ORDERED: PHEN100C PO (11:34)
[2018-09-02] MEDS ORDERED: CLOP75TA2 PO (11:34)
[2018-09-02] MEDS ORDERED: MEMA1TAB2 PO (11:43)
[2018-09-02] MEDS ORDERED: NEUR100C PO (11:43)
[2018-09-02] MEDS ORDERED: NS 1,000 ML IV SCH (11:51)
[2018-09-02 12:11] LABS: BLOOD UREA NITROGEN 16 MG/DL (7-18); CALCIUM LEVEL 8.9 MG/DL (8.8-10.2); CARBON DIOXIDE LEVEL 32 MEQ/L (21-32); CHLORIDE LEVEL 101 MEQ/L (98-107); CREATININE FOR GFR 0.73 MG/DL (0.70-1.30); GLOMERULAR FILTRATION RATE > 60.0 (>42); GLUCOSE, FASTING 134 MG/DL (70-100); PHOSPHORUS LEVEL 1.8 MG/DL (2.5-4.9); POTASSIUM SERUM 3.8 MEQ/L (3.5-5.1); SODIUM LEVEL 140 MEQ/L (136-145)
[2018-09-02 12:12] LABS: ALT/SGPT 34 U/L (12-78); BILIRUBIN,DIRECT < 0.1 MG/DL (0.0-0.2); BILIRUBIN,TOTAL 0.3 MG/DL (0.2-1.0); MAGNESIUM LEVEL 1.9 MG/DL (1.8-2.4); PHENYTOIN (DILANTIN) 11.9 UG/ML (10.0-20.0); TOTAL PROTEIN 7.4 GM/DL (6.4-8.2)
[2018-09-02] MEDS ORDERED: ONDANSETRON 4MG/2ML VIAL (J2405) As Ordered ONE (12:12)
--- NOTE | 2018-09-02 13:41 | REP ---
CT BRAIN WITHOUT CONTRAST: CT brain performed without IV contrast. There is moderate atrophy. There is no midline shift or mass effect. There are old areas of encephalomalacia in the left frontal and parietal lobes unchanged since prior study. There is also scattered periventricular small vessel ischemic change. There is no acute intracranial hemorrhage or extra-axial fluid collection. No skull fracture is seen. There is moderate opacification of bilateral ethmoid air cells. IMPRESSION: Chronic atrophy and ischemic changes. No acute hemorrhage or other acute finding. Electronically Signed by Bear Enrique MD 09/02/2018 06:14 P
--- NOTE | 2018-09-02 13:46 | REP ---
CHEST, TWO VIEWS: Two views of the chest are performed and compared to a prior study of 11/18/2014 as well as other prior study. There is no acute infiltrate. There is chronic elevation of the right hemidiaphragm. The heart is not enlarged. The mediastinal silhouette is unchanged. There are mild degenerative changes of the spine. IMPRESSION: No acute infiltrate. Electronically Signed by Bear Enrique MD 09/02/2018 06:14 P
[2018-09-02] MEDS ORDERED: KEPP1TAB PO (14:11)
[2018-09-02] MEDS ORDERED: levETIRAcetam INJection 500 MG in D5W MINI-BAG PLUS 100 ML IV ONE (14:15)
[2018-09-02 14:44] VITALS: BP 122/59
--- NOTE | 2018-09-02 20:03 | ECGEPIP ---
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
== END 2018-09-02 14:52 | disposition home or self-care (01) ==
LOC: M ED 10:45
DX: G40.909 Epilepsy, unspecified, not intractable, without status epilepticus (principal); R00.0 Tachycardia, unspecified; I45.4 Nonspecific intraventricular block; Z86.73 Personal history of transient ischemic attack (TIA), and cerebral infarction without residual deficits; J44.9 Chronic obstructive pulmonary disease, unspecified; F03.90 Unspecified dementia, unspecified severity, without behavioral disturbance, psychotic disturbance, mood disturbance, and anxiety; I10 Essential (primary) hypertension; H40.9 Unspecified glaucoma; Z87.891 Personal history of nicotine dependence; Z79.82 Long term (current) use of aspirin; Z79.899 Other long term (current) drug therapy; Z88.8 Allergy status to other drugs, medicaments and biological substances
CPT/HCPCS: 70450; 71046; 80048; 80076; 80185; 81001; 83735; 84100; 85025; 93005; 94760; 96374; 99284; J1953

== ENCOUNTER → 2018-10-31 | Outpatient (REF) | payer MEDICARE ==
[~2018-10-31] MED LIST changes: +CLOP75TA2 PO; +KEPP1TAB PO; +MEMA1TAB2 PO; +PHEN100C PO
== END ==
LOC: M SFHCPLAZ 18:14
PROVIDERS: ATTEND Dermatology
DX: L57.0 Actinic keratosis (principal)

== ENCOUNTER → 2018-12-10 | Outpatient (REF) | payer MEDICARE ==
[2018-12-10 18:08] LABS: CHOLESTEROL RISK RATIO 3.647 (<5)
== END ==
LOC: M SFHCLERA 12:28
PROVIDERS: ATTEND Family Medicine
DX: E78.2 Mixed hyperlipidemia (principal)

== ENCOUNTER → 2019-01-08 | Outpatient (CLI) | payer MEDICARE ==
--- NOTE | 2019-01-08 09:57 | REP ---
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 Technique: Real time winter scale ultrasound examination of the bilateral kidneys along with color Doppler evaluation of the bilateral main renal arteries. Findings: The bilateral kidneys are normal in contour, size, and reniform shape with increased central sinus fat suggesting chronic medical renal disease. No hydronephrosis, obvious nephrolithiasis, or renal mass lesion is appreciated. The right kidney measures 10.1 x 5.0 x 4.8 cm and without cyst or further abnormality. The left kidney measures 10.6 x 5.1 x 5.1 cm and includes 1.5 x 1.2 x 1.1 cm mid pole cyst. The bladder is grossly unremarkable and currently measures 6.9 x 5.0 x 2.8 cm. Prostate gland measures 4.3 x 3.2 x 3.1 cm. Color Doppler evaluation of the main renal arteries is somewhat limited due to interposed bowel gas. The right main renal artery demonstrates a normal arterial wave pattern with maximal velocities between 74 cm/sec and 92 cm/sec. The left main renal artery demonstrates a normal arterial wave pattern with maximal velocities at 75 cm/sec. Impression: 1. Kidneys demonstrate chronic age-related changes including increased central sinus fat and solitary left renal cyst. No hydronephrosis. 2. Evaluation of the bilateral main renal arteries is somewhat limited due to interposed bowel gas but normal arterial wave patterns and velocities are identified. Electronically Signed by Cliff Montano MD 01/08/2019 09:48 A
== END ==
LOC: M RAD 08:46
PROVIDERS: ATTEND Surgery Vascular Surgery
DX: I72.2 Aneurysm of renal artery (principal)

== ENCOUNTER 2019-02-13 16:19 | Emergency (ER) | payer MEDICARE ==
[~2019-02-13] VITALS: Ht 172.7 cm; Wt 68.2 kg
[2019-02-13 18:52] LABS: BASO # 0.1 10^3/uL (0.0-0.2); EOS # 0.3 10^3/uL (0.0-0.5); EOS % 4.8 % (0.0-3.0); HEMATOCRIT 42.1 % (42.0-52.0); HEMOGLOBIN 14.2 g/dl (13.5-17.5); LYMPH # 2.1 10^3/uL (1.5-5.0); LYMPH % 34.1 % (24.0-44.0); MEAN CORPUSCULAR HGB CONC 33.7 g/dl (32.0-36.5); MEAN CORPUSCULAR VOLUME 94.8 fl (80.0-96.0); MONO # 0.5 10^3/uL (0.0-0.8); MONO % 8.8 % (0.0-5.0); NEUTROPHILS # 3.1 10^3/uL (1.5-8.5); NEUTROPHILS % 51.1 % (36.0-66.0); PLATELET COUNT, AUTOMATED 186 10^3/uL (150-450); RED BLOOD COUNT 4.44 10^6/uL (4.30-6.10)
[2019-02-13 19:05] LABS: ALBUMIN 3.4 GM/DL (3.2-5.2); ALT/SGPT 88 U/L (12-78); BILIRUBIN,DIRECT 0.1 MG/DL (0.0-0.2); BILIRUBIN,TOTAL 0.3 MG/DL (0.2-1.0); BLOOD UREA NITROGEN 21 MG/DL (7-18); CALCIUM LEVEL 8.8 MG/DL (8.8-10.2); CARBON DIOXIDE LEVEL 32 MEQ/L (21-32); CHLORIDE LEVEL 105 MEQ/L (98-107); CK-MB VALUE MASS 2.7 NG/ML (<3.6); CPK CREATINE PHOSPHOKINASE 60 U/L (39-308); CREATININE FOR GFR 0.77 MG/DL (0.70-1.30); GLOMERULAR FILTRATION RATE > 60.0 (>42); GLUCOSE, FASTING 93 MG/DL (70-100); NT-PRO BNP 40 PG/ML (<450); SODIUM LEVEL 141 MEQ/L (136-145); TOTAL PROTEIN 6.6 GM/DL (6.4-8.2); TROPONIN I < 0.02 NG/ML (< 0.10)
[2019-02-13 19:05] LABS: INR 0.96; PROTHROMBIN TIME 12.5 SECONDS (11.8-14.0)
--- NOTE | 2019-02-13 19:08 | REP ---
HISTORY: Dyspnea. COMPARISON: 09/02/2018 FINDINGS: The superior mediastinal structures are midline. The cardiac silhouette is unremarkable in size, shape and position. The diaphragmatic surfaces of the lungs are regular and the costophrenic angles are clear. The pulmonary tucker are clear. The imaged osseous structures are intact. IMPRESSION: There is no acute cardiopulmonary disease. There is chronic elevation of the diaphragmatic surfaces of the right lung, status quo. Electronically Signed by Ace Mliler DO 02/13/2019 07:49 P
[2019-02-13 19:15] VITALS: BP 122/60
[2019-02-13] MEDS ORDERED: NS 1,000 ML IV SCH (19:30)
--- NOTE | 2019-02-13 20:43 | ECGEPIP ---
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
== END 2019-02-13 20:56 | disposition home or self-care (01) ==
LOC: M ED 16:19
DX: R53.1 Weakness (principal); R53.83 Other fatigue; R53.81 Other malaise; R00.1 Bradycardia, unspecified; I51.9 Heart disease, unspecified; E11.9 Type 2 diabetes mellitus without complications; I10 Essential (primary) hypertension; J44.9 Chronic obstructive pulmonary disease, unspecified; G40.909 Epilepsy, unspecified, not intractable, without status epilepticus; Z87.891 Personal history of nicotine dependence; Z79.82 Long term (current) use of aspirin; Z79.899 Other long term (current) drug therapy; Z88.8 Allergy status to other drugs, medicaments and biological substances

== ENCOUNTER → 2019-02-14 | Outpatient (REF) | payer MEDICARE ==
[2019-02-14 16:54] LABS: ALBUMIN 3.8 GM/DL (3.2-5.2); ALT/SGPT 84 U/L (12-78); BILIRUBIN,DIRECT 0.1 MG/DL (0.0-0.2); BILIRUBIN,TOTAL 0.2 MG/DL (0.2-1.0); PHENYTOIN (DILANTIN) 9.8 UG/ML (10.0-20.0); TOTAL PROTEIN 7.2 GM/DL (6.4-8.2)
[2019-02-14 17:17] LABS: VITAMIN B12 LEVEL 429 PG/ML (247-911)
[2019-02-15 12:58] LABS: HEPATITIS B SURFACE ANTIGEN NEGATIVE (NEGATIVE)
[2019-02-15 13:24] LABS: HEPATITIS C VIRUS ABY INDEX 0.1 INDEX (<0.8)
[2019-02-15 13:25] LABS: HEPATITIS B CORE ANTIBODY IGM NEGATIVE (NEGATIVE)
[2019-02-15 13:28] LABS: HEPATITIS A ANTIBODY IGM NEGATIVE (NEGATIVE)
[2019-02-17 00:10] LABS: Lyme Disease IgG/IgM Antibodie <0.91 ISR (0.00-0.90); Lyme Disease IgM Ab Quantitati <0.80 index (0.00-0.79)
== END ==
LOC: M SFHCLERA 12:28
PROVIDERS: ATTEND Family Medicine
DX: R53.81 Other malaise (principal)

== ENCOUNTER → 2019-03-26 | Outpatient (CLI) | payer MEDICARE ==
[~2019-03-26] MED LIST changes: +BILB100C PO; +KP F1200 PO; +LAMO100T80 PO; +PROAAER10 INH; +VITA200020 PO; +VITA500T40 PO
[2019-03-26 17:01] LABS: BASO # 0.1 10^3/uL (0.0-0.2); BASO % 1.4 % (0.0-1.0); EOS # 0.4 10^3/uL (0.0-0.5); EOS % 5.8 % (0.0-3.0); HEMATOCRIT 47.2 % (42.0-52.0); HEMOGLOBIN 15.4 g/dl (13.5-17.5); LYMPH # 2.4 10^3/uL (1.5-5.0); LYMPH % 33.9 % (24.0-44.0); MEAN CORPUSCULAR HEMOGLOBIN 31.6 pg (27.0-33.0); MEAN CORPUSCULAR HGB CONC 32.6 g/dl (32.0-36.5); MEAN CORPUSCULAR VOLUME 96.9 fl (80.0-96.0); MONO # 0.4 10^3/uL (0.0-0.8); MONO % 5.9 % (0.0-5.0); NEUTROPHILS # 3.7 10^3/uL (1.5-8.5); NEUTROPHILS % 52.6 % (36.0-66.0); PLATELET COUNT, AUTOMATED 279 10^3/uL (150-450); RED BLOOD COUNT 4.87 10^6/uL (4.30-6.10); WHITE BLOOD COUNT 6.9 10^3/uL (4.0-10.0)
[2019-03-26 17:16] LABS: ALBUMIN 3.8 GM/DL (3.2-5.2); ALT/SGPT 37 U/L (12-78); BILIRUBIN,TOTAL 0.3 MG/DL (0.2-1.0); BLOOD UREA NITROGEN 17 MG/DL (7-18); CALCIUM LEVEL 9.4 MG/DL (8.8-10.2); CARBON DIOXIDE LEVEL 34 MEQ/L (21-32); CHLORIDE LEVEL 101 MEQ/L (98-107); CREATININE FOR GFR 0.73 MG/DL (0.70-1.30); GLOMERULAR FILTRATION RATE > 60.0 (>42); GLUCOSE, FASTING 80 MG/DL (70-100); PHENYTOIN (DILANTIN) 23.4 UG/ML (10.0-20.0); SODIUM LEVEL 139 MEQ/L (136-145); TOTAL PROTEIN 7.3 GM/DL (6.4-8.2)
[2019-03-26 17:33] LABS: PHENOBARBITAL LEVEL 2.1 UG/ML (15.0-40.0)
== END ==
LOC: M LRY 12:37
PROVIDERS: ATTEND Psychiatry & Neurology Neurology
DX: G40.909 Epilepsy, unspecified, not intractable, without status epilepticus (principal)

== ENCOUNTER 2019-04-05 12:50 | Inpatient (IN) | payer MEDICARE ==
[~2019-04-05] VITALS: Ht 170.2 cm; Wt 70.6 kg
[~2019-04-05 12:50] MED LIST changes: -BILB100C PO; -KP F1200 PO; -LAMO100T80 PO; -PROAAER10 INH; -VITA200020 PO; -VITA500T40 PO
[2019-04-05] MEDS ORDERED: NS 1,000 ML IV ONE (13:15)
[2019-04-05 14:02] LABS: BASO % 0.4 % (0.0-1.0); HEMATOCRIT 41.3 % (42.0-52.0); HEMOGLOBIN 14.3 g/dl (13.5-17.5); LYMPH # 0.4 10^3/uL (1.5-5.0); LYMPH % 8.2 % (24.0-44.0); MEAN CORPUSCULAR HEMOGLOBIN 32.3 pg (27.0-33.0); MEAN CORPUSCULAR HGB CONC 34.6 g/dl (32.0-36.5); MEAN CORPUSCULAR VOLUME 93.2 fl (80.0-96.0); MONO # 0.5 10^3/uL (0.0-0.8); MONO % 9.8 % (0.0-5.0); NEUTROPHILS % 81.2 % (36.0-66.0); PLATELET COUNT, AUTOMATED 113 10^3/uL (150-450); RED BLOOD COUNT 4.43 10^6/uL (4.30-6.10); WHITE BLOOD COUNT 4.9 10^3/uL (4.0-10.0)
[2019-04-05] MEDS ORDERED: ISOVUE-370 76% 100ML VIAL (Q9967) As Ordered ONE (14:05)
--- NOTE | 2019-04-05 14:09 | REP ---
CHEST, SINGLE VIEW: COMPARISON: 02/13/2019 as well as other prior exams. There is chronic elevation of the right hemidiaphragm. There is mild bibasilar atelectatic change without acute infiltrate. Heart is not enlarged and there is calcification of the thoracic aorta. Mediastinal silhouette is unchanged. IMPRESSION: No acute infiltrate. Electronically Signed by Bear Enrique MD 04/06/2019 11:16 A
[2019-04-05 14:10] LABS: OSMOLALITY SERUM 281 MOSM/KG (280-301)
[2019-04-05 14:33] LABS: ALBUMIN 3.4 GM/DL (3.2-5.2); ALT/SGPT 48 U/L (12-78); BILIRUBIN,DIRECT 0.2 MG/DL (0.0-0.2); BILIRUBIN,TOTAL 0.5 MG/DL (0.2-1.0); CK-MB VALUE MASS 5.4 NG/ML (<3.6); CPK CREATINE PHOSPHOKINASE 546 U/L (39-308); MB/CK RELATIVE INDEX 0.99 (< OR =4); PHENYTOIN (DILANTIN) 22.8 UG/ML (10.0-20.0); TOTAL PROTEIN 7.1 GM/DL (6.4-8.2); TROPONIN I < 0.02 NG/ML (< 0.10)
--- NOTE | 2019-04-05 14:39 | REP ---
CT brain: 04/05/2019. Indication: Altered mental status. Stroke. Comparison: 09/02/2018. Comparison: 09/02/2018. Technique: Unenhanced axial CT images of the brain were obtained from skull base to vertex. Findings: There is no acute intracranial hemorrhage, acute cortical infarction, mass effect or hydrocephalous. Areas of encephalomalacia/gliosis are present within the bifrontal regions, left temporal lobe, left parietal region, right frontoparietal region superiorly as well as the right cerebellum most consistent with chronic infarctions. Diffuse volume loss is present. Multiple areas of elevated CT prolongation are present throughout the subcortical and periventricular white matter. Impression: There is no evidence of acute intracranial process. Multiple chronic infarctions, volume loss and sequelae of chronic microangiopathic ischemic disease. Electronically Signed by Melo Heard DO 04/05/2019 02:30 P
--- NOTE | 2019-04-05 14:44 | REP ---
CT cervical spine: 04/05/2019. Indication: Cervical spine trauma. Comparison: None. Technique: Unenhanced axial CT images of the cervical spine were obtained with coronal and sagittal reconstructions. Findings: There is no acute fracture, subluxation or dislocation. There is fusion of C6/C7. No erosive osseous lesions are present. There is no evidence of significant spinal canal hemorrhage or additional acute post traumatic abnormalities of the spinal canal. There is no evidence of severe narrowing of the spinal canal. Multilevel spondylitic sequelae are present most pronounced on the left at C3/C4 and C4/C5. Impression: No acute osseous injuries of the cervical spine. Electronically Signed by Melo Heard DO 04/05/2019 02:36 P
[2019-04-05] MEDS ORDERED: PHEN100C PO ×2 (15:07)
[2019-04-05] MEDS ORDERED: KP F1200 PO (15:12)
[2019-04-05] MEDS ORDERED: LAMO100T80 PO (15:12)
[2019-04-05] MEDS ORDERED: BILB100C PO (15:12)
[2019-04-05] MEDS ORDERED: VITA200020 PO (15:12)
[2019-04-05] MEDS ORDERED: VITA500T40 PO (15:12)
[2019-04-05] MEDS ORDERED: PROAAER10 INH (15:12)
--- NOTE | 2019-04-05 17:39 | REP ---
CT CHEST WITH IV CONTRAST: TECHNIQUE: Axial contrast enhanced images from the thoracic inlet to the upper abdomen using 100 mL Isovue 370 intravenous contrast material with multiplanar reformations. The lungs show mild bibasilar fibroatelectatic change. Bullous change is seen in the right posterior costophrenic sulcus. There is no pneumothorax. There is no thoracic aortic aneurysm or dissection. Heart is normal in size. There is no pleural or pericardial effusion. There are degenerative changes of the spine. There are fractures of the posterior 11th and 12th ribs. The 12th rib fracture is slightly displaced. IMPRESSION: Fractures of posterior 11th and 12th ribs. No other acute finding. Electronically Signed by Bear Enrique MD 04/06/2019 11:20 A
--- NOTE | 2019-04-05 17:56 | REP ---
CT ABDOMEN AND PELVIS WITH IV CONTRAST: TECHNIQUE: Axial contrast enhanced images from the lung bases to the pubic symphysis using 100 mL Isovue 370 intravenous contrast material with multiplanar reformations. Liver demonstrates no mass. There is a gallstone in the bladder. This measures 1.7 cm in diameter. The spleen, adrenals, pancreas and kidneys are unremarkable. There is no hydronephrosis. There is atherosclerotic calcification of the abdominal aorta without aneurysm. I see no adenopathy. There is no free air or free fluid. There is no bowel wall thickening. There is no abnormality of the urinary bladder. There are degenerative changes of the spine. Metallic internal fixation is seen in the proximal right femur. IMPRESSION: No acute abnormalities. Gallstone is seen in the gallbladder without gallbladder wall edema or evidence of biliary dilatation. No free air or free fluid. Electronically Signed by Bear Enrique MD 04/06/2019 11:20 A
[2019-04-05] MEDS: ACETAMINOPHEN 500 MG TAB PO PRN (20:02)
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
[2019-04-05 20:25] VITALS: BP 158/74
[2019-04-05] MEDS: levETIRAcetam 250MG TABLET (KEPPRA) PO SCH (20:47)
[2019-04-05] MEDS: MEMANTINE 5MG TABLET (NAMENDA) PO SCH (20:47)
[2019-04-05] MEDS ORDERED: HEPARIN SOD (PORCINE) 5000 UNITS/ML VIAL SC SCH (21:00)
[2019-04-05] MEDS ORDERED: lamoTRIgine 100MG TAB PO SCH (21:00)
--- NOTE | 2019-04-05 21:31 | ECGEPIP ---
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
[2019-04-06 02:58] VITALS: BP 162/90
[2019-04-06 04:55] VITALS: BP 130/66
[2019-04-06] MEDS ORDERED: METOPROLOL TART 50 MG TAB PO ONE (05:45)
[2019-04-06 06:00] VITALS: BP 130/66
[2019-04-06 06:00] LABS: BASO % 0.7 % (0.0-1.0); HEMATOCRIT 40.4 % (42.0-52.0); HEMOGLOBIN 13.7 g/dl (13.5-17.5); LYMPH # 0.3 10^3/uL (1.5-5.0); LYMPH % 7.9 % (24.0-44.0); MEAN CORPUSCULAR HEMOGLOBIN 31.1 pg (27.0-33.0); MEAN CORPUSCULAR HGB CONC 33.9 g/dl (32.0-36.5); MEAN CORPUSCULAR VOLUME 91.6 fl (80.0-96.0); MONO # 0.4 10^3/uL (0.0-0.8); MONO % 10.1 % (0.0-5.0); NEUTROPHILS # 3.4 10^3/uL (1.5-8.5); NEUTROPHILS % 81.1 % (36.0-66.0); RED BLOOD COUNT 4.41 10^6/uL (4.30-6.10); WHITE BLOOD COUNT 4.2 10^3/uL (4.0-10.0)
[2019-04-06 06:15] LABS: BLOOD UREA NITROGEN 15 MG/DL (7-18); CALCIUM LEVEL 8.2 MG/DL (8.8-10.2); CARBON DIOXIDE LEVEL 30 MEQ/L (21-32); CHLORIDE LEVEL 98 MEQ/L (98-107); CREATININE FOR GFR 0.72 MG/DL (0.70-1.30); GLOMERULAR FILTRATION RATE > 60.0 (>42); GLUCOSE, FASTING 121 MG/DL (70-100); POTASSIUM SERUM 3.5 MEQ/L (3.5-5.1); SODIUM LEVEL 134 MEQ/L (136-145)
[2019-04-06 06:17] VITALS: BP 139/65
[2019-04-06 06:26] LABS: PLATELET COUNT, AUTOMATED 95 10^3/uL (150-450)
[2019-04-06] MEDS: TIOTROPIUM INHALER/CAPSULE (SPIRIVA) INH SCH (07:53)
[2019-04-06] MEDS: SIMBRINZA OU SCH (09:00)
[2019-04-06] MEDS ORDERED: lamoTRIgine 100MG TAB PO SCH (09:00)
[2019-04-06] MEDS ORDERED: PHENYTOIN ER 100 MG CAP PO SCH (09:00)
[2019-04-06] MEDS: MEMANTINE 5MG TABLET (NAMENDA) PO SCH ×2 (09:13→21:07)
[2019-04-06] MEDS: ASPIRIN 81 MG ENTERIC TAB PO SCH (09:13)
[2019-04-06] MEDS: CYANOCOBALAMIN 500 MCG TAB PO SCH (09:13)
[2019-04-06] MEDS: CLOPIDOGREL 75 MG TAB PO SCH (09:14)
[2019-04-06] MEDS: levETIRAcetam 250MG TABLET (KEPPRA) PO SCH ×2 (09:14→21:07)
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
[2019-04-06] MEDS ORDERED: ONDANSETRON 4MG/2ML VIAL (J2405) IV PRN (11:00)
[2019-04-06 14:00] VITALS: BP 98/56
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
[2019-04-06] MEDS: ACETAMINOPHEN 500 MG TAB PO PRN (17:57)
[2019-04-06] MEDS: lamoTRIgine 100MG TAB PO SCH (21:08)
[2019-04-06 22:00] VITALS: BP 104/61
[2019-04-07 06:00] VITALS: BP 101/62
[2019-04-07 06:11] LABS: HEMOGLOBIN 13.2 g/dl (13.5-17.5); MEAN CORPUSCULAR HEMOGLOBIN 31.5 pg (27.0-33.0); MEAN CORPUSCULAR HGB CONC 33.8 g/dl (32.0-36.5); MEAN CORPUSCULAR VOLUME 93.1 fl (80.0-96.0); RED BLOOD COUNT 4.19 10^6/uL (4.30-6.10); WHITE BLOOD COUNT 3.1 10^3/uL (4.0-10.0)
[2019-04-07 06:13] LABS: PLATELET COUNT, AUTOMATED 88 10^3/uL (150-450)
[2019-04-07 06:29] LABS: BLOOD UREA NITROGEN 18 MG/DL (7-18); CALCIUM LEVEL 8.7 MG/DL (8.8-10.2); CARBON DIOXIDE LEVEL 35 MEQ/L (21-32); CHLORIDE LEVEL 98 MEQ/L (98-107); GLOMERULAR FILTRATION RATE > 60.0 (>42); GLUCOSE, FASTING 114 MG/DL (70-100); SODIUM LEVEL 137 MEQ/L (136-145)
[2019-04-07 06:39] LABS: ATYPICAL LYMPH 5 % (0-5); LYMPHOCYTES 24 % (16-44); MONOCYTES 5 % (0-5); NEUTROPHILS 65 % (28-66); PLATELET ESTIMATE DECREASED (NORMAL)
[2019-04-07] MEDS: SIMBRINZA OU SCH (07:36)
[2019-04-07] MEDS: CLOPIDOGREL 75 MG TAB PO SCH (08:36)
[2019-04-07] MEDS: CYANOCOBALAMIN 500 MCG TAB PO SCH (08:36)
[2019-04-07] MEDS: MEMANTINE 5MG TABLET (NAMENDA) PO SCH ×2 (08:37→20:38)
[2019-04-07] MEDS: ASPIRIN 81 MG ENTERIC TAB PO SCH (08:37)
[2019-04-07] MEDS: lamoTRIgine 100MG TAB PO SCH ×2 (08:37→20:38)
[2019-04-07] MEDS: levETIRAcetam 250MG TABLET (KEPPRA) PO SCH ×2 (08:37→20:38)
[2019-04-07] MEDS: TIOTROPIUM INHALER/CAPSULE (SPIRIVA) INH SCH (08:48)
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
[2019-04-07 14:00] VITALS: BP 111/65
[2019-04-07 22:00] VITALS: BP 113/65
[2019-04-08 06:00] VITALS: BP 114/64
[2019-04-08 06:01] LABS: HEMATOCRIT 37.8 % (42.0-52.0); HEMOGLOBIN 12.9 g/dl (13.5-17.5); MEAN CORPUSCULAR HEMOGLOBIN 31.9 pg (27.0-33.0); MEAN CORPUSCULAR HGB CONC 34.1 g/dl (32.0-36.5); MEAN CORPUSCULAR VOLUME 93.6 fl (80.0-96.0); PLATELET COUNT, AUTOMATED 100 10^3/uL (150-450); RED BLOOD COUNT 4.04 10^6/uL (4.30-6.10)
[2019-04-08 06:23] LABS: BLOOD UREA NITROGEN 14 MG/DL (7-18); CALCIUM LEVEL 8.2 MG/DL (8.8-10.2); CARBON DIOXIDE LEVEL 34 MEQ/L (21-32); CHLORIDE LEVEL 98 MEQ/L (98-107); CREATININE FOR GFR 0.69 MG/DL (0.70-1.30); GLOMERULAR FILTRATION RATE > 60.0 (>42); GLUCOSE, FASTING 103 MG/DL (70-100); POTASSIUM SERUM 3.8 MEQ/L (3.5-5.1); SODIUM LEVEL 136 MEQ/L (136-145)
[2019-04-08 06:41] LABS: ATYPICAL LYMPH 8 % (0-5); EOSINOPHILS 2 % (0-3); LYMPHOCYTES 37 % (16-44); MONOCYTES 7 % (0-5); NEUTROPHILS 44 % (28-66)
[2019-04-08 06:42] LABS: ANISOCYTOSIS 1+; PLATELET ESTIMATE DECREASED (NORMAL)
[2019-04-08] MEDS: TIOTROPIUM INHALER/CAPSULE (SPIRIVA) INH SCH (07:18)
[2019-04-08] MEDS: MEMANTINE 5MG TABLET (NAMENDA) PO SCH ×2 (09:42→20:59)
[2019-04-08] MEDS: CLOPIDOGREL 75 MG TAB PO SCH (09:43)
[2019-04-08] MEDS: lamoTRIgine 100MG TAB PO SCH ×2 (09:43→20:59)
[2019-04-08] MEDS: ASPIRIN 81 MG ENTERIC TAB PO SCH (09:43)
[2019-04-08] MEDS: levETIRAcetam 250MG TABLET (KEPPRA) PO SCH ×2 (09:43→20:59)
[2019-04-08] MEDS: CYANOCOBALAMIN 500 MCG TAB PO SCH (09:43)
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
[2019-04-08 12:18] LABS: VITAMIN B12 LEVEL 339 PG/ML (247-911)
[2019-04-08 14:00] VITALS: BP 115/65
[2019-04-08] MEDS: SENOKOT S TAB PO SCH (20:59)
[2019-04-08 22:00] VITALS: BP 122/66
[2019-04-09 00:07] LABS: LAMOTRIGINE (LAMICTAL) None Detected ug/mL (2.0-20.0); LEVETIRACETAM (KEPPRA) 1.1 ug/mL (10.0-40.0)
[2019-04-09 06:00] VITALS: BP 141/67
[2019-04-09 06:01] LABS: HEMOGLOBIN 12.7 g/dl (13.5-17.5); MEAN CORPUSCULAR HEMOGLOBIN 30.9 pg (27.0-33.0); MEAN CORPUSCULAR HGB CONC 33.4 g/dl (32.0-36.5); MEAN CORPUSCULAR VOLUME 92.5 fl (80.0-96.0); PLATELET COUNT, AUTOMATED 123 10^3/uL (150-450); RED BLOOD COUNT 4.11 10^6/uL (4.30-6.10); WHITE BLOOD COUNT 5.8 10^3/uL (4.0-10.0)
[2019-04-09 06:20] LABS: ANISOCYTOSIS 1+; ATYPICAL LYMPH 7 % (0-5); BLOOD UREA NITROGEN 13 MG/DL (7-18); CALCIUM LEVEL 8.6 MG/DL (8.8-10.2); CARBON DIOXIDE LEVEL 33 MEQ/L (21-32); CHLORIDE LEVEL 99 MEQ/L (98-107); EOSINOPHILS 4 % (0-3); GLOMERULAR FILTRATION RATE > 60.0 (>42); GLUCOSE, FASTING 104 MG/DL (70-100); LYMPHOCYTES 42 % (16-44); MONOCYTES 10 % (0-5); NEUTROPHILS 35 % (28-66); PLATELET ESTIMATE DECREASED (NORMAL); POIKILOCYTOSIS 1+; POTASSIUM SERUM 3.8 MEQ/L (3.5-5.1); SODIUM LEVEL 138 MEQ/L (136-145)
[2019-04-09 06:21] LABS: POLYCHROMASIA 1+
[2019-04-09] MEDS: TIOTROPIUM INHALER/CAPSULE (SPIRIVA) INH SCH (07:22)
[2019-04-09] MEDS ORDERED: SIMBRINZA OU SCH (09:00)
[2019-04-09] MEDS: SENOKOT S TAB PO SCH ×2 (09:00→20:21)
[2019-04-09] MEDS ORDERED: lamoTRIgine 100MG TAB PO SCH (09:00)
[2019-04-09] MEDS: MIRALAX *UNIT DOSE* 17GM PACKET PO PRN (09:00)
[2019-04-09] MEDS: CLOPIDOGREL 75 MG TAB PO SCH (09:00)
[2019-04-09] MEDS: MEMANTINE 5MG TABLET (NAMENDA) PO SCH ×2 (09:00→20:21)
[2019-04-09] MEDS: CYANOCOBALAMIN 500 MCG TAB PO SCH (09:00)
[2019-04-09] MEDS: levETIRAcetam 250MG TABLET (KEPPRA) PO SCH ×2 (09:00→20:21)
[2019-04-09] MEDS: ASPIRIN 81 MG ENTERIC TAB PO SCH (09:00)
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
[2019-04-09 14:00] VITALS: BP 130/75
[2019-04-09] MEDS: lamoTRIgine 100MG TAB PO SCH (20:21)
[2019-04-09 22:00] VITALS: BP 125/68
[2019-04-10 06:00] VITALS: BP 123/58
[2019-04-10 06:14] LABS: HEMATOCRIT 39.3 % (42.0-52.0); HEMOGLOBIN 13.3 g/dl (13.5-17.5); MEAN CORPUSCULAR HEMOGLOBIN 31.3 pg (27.0-33.0); MEAN CORPUSCULAR HGB CONC 33.8 g/dl (32.0-36.5); MEAN CORPUSCULAR VOLUME 92.5 fl (80.0-96.0); PLATELET COUNT, AUTOMATED 168 10^3/uL (150-450); RED BLOOD COUNT 4.25 10^6/uL (4.30-6.10); WHITE BLOOD COUNT 7.2 10^3/uL (4.0-10.0)
[2019-04-10 06:31] LABS: BLOOD UREA NITROGEN 14 MG/DL (7-18); CALCIUM LEVEL 9.1 MG/DL (8.8-10.2); CARBON DIOXIDE LEVEL 32 MEQ/L (21-32); CHLORIDE LEVEL 101 MEQ/L (98-107); GLOMERULAR FILTRATION RATE > 60.0 (>42); GLUCOSE, FASTING 108 MG/DL (70-100); PHENYTOIN (DILANTIN) 2.7 UG/ML (10.0-20.0); POTASSIUM SERUM 4.2 MEQ/L (3.5-5.1); SODIUM LEVEL 139 MEQ/L (136-145)
[2019-04-10 06:36] LABS: EOSINOPHILS 1 % (0-3); LYMPHOCYTES 60 % (16-44); MONOCYTES 1 % (0-5); NEUTROPHILS 38 % (28-66)
[2019-04-10 06:37] LABS: PLATELET ESTIMATE NORMAL (NORMAL)
[2019-04-10] MEDS: TIOTROPIUM INHALER/CAPSULE (SPIRIVA) INH SCH (08:37)
[2019-04-10] MEDS: MEMANTINE 5MG TABLET (NAMENDA) PO SCH ×2 (08:50→20:25)
[2019-04-10] MEDS: lamoTRIgine 100MG TAB PO SCH ×2 (08:50→20:26)
[2019-04-10] MEDS: levETIRAcetam 250MG TABLET (KEPPRA) PO SCH ×2 (08:50→20:25)
[2019-04-10] MEDS: CYANOCOBALAMIN 500 MCG TAB PO SCH (08:50)
[2019-04-10] MEDS: ASPIRIN 81 MG ENTERIC TAB PO SCH (08:50)
[2019-04-10] MEDS: SENOKOT S TAB PO SCH ×2 (08:50→20:25)
[2019-04-10] MEDS: CLOPIDOGREL 75 MG TAB PO SCH (08:50)
[2019-04-10] MEDS: MIRALAX *UNIT DOSE* 17GM PACKET PO PRN (08:52)
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
[2019-04-10 14:00] VITALS: BP 119/66
[2019-04-10] MEDS: ACETAMINOPHEN 500 MG TAB PO PRN (14:03)
[2019-04-10] MEDS: BRIMONIDINE 0.15% OPHTH SOLN 5 ML OU SCH (15:10)
[2019-04-10] MEDS: BRINZOLAMIDE 1 % OPHTH SUSP (AZOPT) 10ML OU SCH (15:10)
[2019-04-10 22:00] VITALS: BP 112/59
[2019-04-11 06:00] VITALS: BP 122/50
[2019-04-11 07:32] LABS: MEAN CORPUSCULAR HEMOGLOBIN 30.5 pg (27.0-33.0); MEAN CORPUSCULAR HGB CONC 32.5 g/dl (32.0-36.5); MEAN CORPUSCULAR VOLUME 93.9 fl (80.0-96.0); PLATELET COUNT, AUTOMATED 223 10^3/uL (150-450); RED BLOOD COUNT 4.26 10^6/uL (4.30-6.10); WHITE BLOOD COUNT 6.5 10^3/uL (4.0-10.0)
[2019-04-11 07:54] LABS: BLOOD UREA NITROGEN 18 MG/DL (7-18); CALCIUM LEVEL 8.8 MG/DL (8.8-10.2); CARBON DIOXIDE LEVEL 32 MEQ/L (21-32); CHLORIDE LEVEL 104 MEQ/L (98-107); CREATININE FOR GFR 0.64 MG/DL (0.70-1.30); GLOMERULAR FILTRATION RATE > 60.0 (>42); GLUCOSE, FASTING 96 MG/DL (70-100); POTASSIUM SERUM 4.1 MEQ/L (3.5-5.1); SODIUM LEVEL 140 MEQ/L (136-145)
[2019-04-11] MEDS: TIOTROPIUM INHALER/CAPSULE (SPIRIVA) INH SCH (07:56)
[2019-04-11 08:22] LABS: ATYPICAL LYMPH 6 % (0-5); BASOPHILS 1 % (0-1); EOSINOPHILS 1 % (0-3); GIANT PLATELETS 1+; LYMPHOCYTES 53 % (16-44); MONOCYTES 7 % (0-5); NEUTROPHILS 32 % (28-66); PLATELET ESTIMATE NORMAL (NORMAL)
[2019-04-11] MEDS: levETIRAcetam 250MG TABLET (KEPPRA) PO SCH ×2 (09:23→20:39)
[2019-04-11] MEDS: lamoTRIgine 100MG TAB PO SCH ×2 (09:23→20:40)
[2019-04-11] MEDS: ASPIRIN 81 MG ENTERIC TAB PO SCH (09:23)
[2019-04-11] MEDS: CLOPIDOGREL 75 MG TAB PO SCH (09:23)
[2019-04-11] MEDS: CYANOCOBALAMIN 500 MCG TAB PO SCH (09:24)
[2019-04-11] MEDS: BRIMONIDINE 0.15% OPHTH SOLN 5 ML OU SCH (09:24)
[2019-04-11] MEDS: SENOKOT S TAB PO SCH ×2 (09:24→20:39)
[2019-04-11] MEDS: BRINZOLAMIDE 1 % OPHTH SUSP (AZOPT) 10ML OU SCH (09:24)
[2019-04-11] MEDS: MEMANTINE 5MG TABLET (NAMENDA) PO SCH ×2 (09:24→20:39)
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
[2019-04-11 14:00] VITALS: BP 130/72
[2019-04-11] MEDS: ACETAMINOPHEN 500 MG TAB PO PRN (20:42)
[2019-04-11 22:00] VITALS: BP 129/72
[2019-04-12 06:00] VITALS: BP 148/70
[2019-04-12 06:28] LABS: HEMATOCRIT 38.1 % (42.0-52.0); HEMOGLOBIN 12.6 g/dl (13.5-17.5); MEAN CORPUSCULAR HEMOGLOBIN 31.5 pg (27.0-33.0); MEAN CORPUSCULAR HGB CONC 33.1 g/dl (32.0-36.5); MEAN CORPUSCULAR VOLUME 95.3 fl (80.0-96.0); PLATELET COUNT, AUTOMATED 268 10^3/uL (150-450); WHITE BLOOD COUNT 7.1 10^3/uL (4.0-10.0)
[2019-04-12 06:52] LABS: BLOOD UREA NITROGEN 21 MG/DL (7-18); CALCIUM LEVEL 8.4 MG/DL (8.8-10.2); CARBON DIOXIDE LEVEL 31 MEQ/L (21-32); CHLORIDE LEVEL 105 MEQ/L (98-107); CREATININE FOR GFR 0.77 MG/DL (0.70-1.30); GLOMERULAR FILTRATION RATE > 60.0 (>42); GLUCOSE, FASTING 98 MG/DL (70-100); SODIUM LEVEL 140 MEQ/L (136-145)
[2019-04-12 06:58] LABS: ATYPICAL LYMPH 9 % (0-5); BASOPHILS 1 % (0-1); EOSINOPHILS 1 % (0-3); LYMPHOCYTES 52 % (16-44); MONOCYTES 5 % (0-5); NEUTROPHILS 32 % (28-66)
[2019-04-12 07:01] LABS: PLATELET ESTIMATE NORMAL (NORMAL)
[2019-04-12] MEDS: TIOTROPIUM INHALER/CAPSULE (SPIRIVA) INH SCH (07:20)
[2019-04-12] MEDS: CLOPIDOGREL 75 MG TAB PO SCH (08:48)
[2019-04-12] MEDS: CYANOCOBALAMIN 500 MCG TAB PO SCH (08:48)
[2019-04-12] MEDS: lamoTRIgine 100MG TAB PO SCH ×2 (08:48→21:07)
[2019-04-12] MEDS: BRINZOLAMIDE 1 % OPHTH SUSP (AZOPT) 10ML OU SCH (08:48)
[2019-04-12] MEDS: SENOKOT S TAB PO SCH ×2 (08:48→21:07)
[2019-04-12] MEDS: levETIRAcetam 250MG TABLET (KEPPRA) PO SCH ×2 (08:48→21:07)
[2019-04-12] MEDS: ASPIRIN 81 MG ENTERIC TAB PO SCH (08:48)
[2019-04-12] MEDS: BRIMONIDINE 0.15% OPHTH SOLN 5 ML OU SCH (08:48)
[2019-04-12] MEDS: MEMANTINE 5MG TABLET (NAMENDA) PO SCH ×2 (08:48→21:07)
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
[2019-04-12 14:00] VITALS: BP 128/69
[2019-04-12 22:00] VITALS: BP 144/87
[2019-04-13 00:11] LABS: VITAMIN B1 LEVEL WHOLE BLOOD 104.5 nmol/L (66.5-200.0)
[2019-04-13 06:00] VITALS: BP 122/58
[2019-04-13] MEDS: ASPIRIN 81 MG ENTERIC TAB PO SCH (08:18)
[2019-04-13] MEDS: ACETAMINOPHEN 500 MG TAB PO PRN (08:19)
[2019-04-13] MEDS: lamoTRIgine 100MG TAB PO SCH ×2 (08:20→20:15)
[2019-04-13] MEDS: CLOPIDOGREL 75 MG TAB PO SCH (08:20)
[2019-04-13] MEDS: levETIRAcetam 250MG TABLET (KEPPRA) PO SCH ×2 (08:20→20:14)
[2019-04-13] MEDS: SENOKOT S TAB PO SCH ×2 (08:20→20:14)
[2019-04-13] MEDS: CYANOCOBALAMIN 500 MCG TAB PO SCH (08:20)
[2019-04-13] MEDS: MEMANTINE 5MG TABLET (NAMENDA) PO SCH ×2 (08:20→20:14)
[2019-04-13] MEDS: BRINZOLAMIDE 1 % OPHTH SUSP (AZOPT) 10ML OU SCH (08:21)
[2019-04-13] MEDS: BRIMONIDINE 0.15% OPHTH SOLN 5 ML OU SCH (08:21)
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
[2019-04-13] MEDS: TIOTROPIUM INHALER/CAPSULE (SPIRIVA) INH SCH (11:36)
[2019-04-13 14:45] VITALS: BP 112/54
[2019-04-13 22:00] VITALS: BP 126/73
[2019-04-14 06:00] VITALS: BP 128/70
[2019-04-14] MEDS: TIOTROPIUM INHALER/CAPSULE (SPIRIVA) INH SCH (07:35)
[2019-04-14] MEDS: CLOPIDOGREL 75 MG TAB PO SCH (08:48)
[2019-04-14] MEDS: MEMANTINE 5MG TABLET (NAMENDA) PO SCH ×2 (08:48→20:20)
[2019-04-14] MEDS: SENOKOT S TAB PO SCH ×2 (08:48→20:20)
[2019-04-14] MEDS: ACETAMINOPHEN 500 MG TAB PO PRN (08:49)
[2019-04-14] MEDS: CYANOCOBALAMIN 500 MCG TAB PO SCH (08:49)
[2019-04-14] MEDS: lamoTRIgine 100MG TAB PO SCH ×2 (08:50→20:20)
[2019-04-14] MEDS: ASPIRIN 81 MG ENTERIC TAB PO SCH (08:50)
[2019-04-14] MEDS: levETIRAcetam 250MG TABLET (KEPPRA) PO SCH ×2 (08:50→20:20)
[2019-04-14] MEDS: BRINZOLAMIDE 1 % OPHTH SUSP (AZOPT) 10ML OU SCH (08:51)
[2019-04-14] MEDS: BRIMONIDINE 0.15% OPHTH SOLN 5 ML OU SCH (08:51)
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
[2019-04-14 14:00] VITALS: BP 106/56
[2019-04-14 20:00] VITALS: BP 135/74
[2019-04-15 06:00] VITALS: BP 128/74
[2019-04-15] MEDS: TIOTROPIUM INHALER/CAPSULE (SPIRIVA) INH SCH (07:19)
[2019-04-15] MEDS: CLOPIDOGREL 75 MG TAB PO SCH (08:06)
[2019-04-15] MEDS: SENOKOT S TAB PO SCH (08:06)
[2019-04-15] MEDS: CYANOCOBALAMIN 500 MCG TAB PO SCH (08:07)
[2019-04-15] MEDS: BRIMONIDINE 0.15% OPHTH SOLN 5 ML OU SCH (08:07)
[2019-04-15] MEDS: lamoTRIgine 100MG TAB PO SCH (08:07)
[2019-04-15] MEDS: ASPIRIN 81 MG ENTERIC TAB PO SCH (08:07)
[2019-04-15] MEDS: BRINZOLAMIDE 1 % OPHTH SUSP (AZOPT) 10ML OU SCH (08:08)
[2019-04-15] MEDS: MEMANTINE 5MG TABLET (NAMENDA) PO SCH (08:09)
[2019-04-15] MEDS: levETIRAcetam 250MG TABLET (KEPPRA) PO SCH (08:09)
[2019-04-15] MEDS ORDERED: KEPP250T5 PO (09:56)
[2019-04-15] MEDS ORDERED: LAMI1TAB7 PO (09:56)
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
== END 2019-04-15 11:28 | disposition home health service (06) | DRG 92 ==
LOC: EDBD 12:50 → M ED 12:50 → M ED INP 17:20 → M MSPAV 20:19
PROVIDERS: ADMIT Internal Medicine Nephrology; ATTEND Internal Medicine
DX: R29.6 Repeated falls (principal); S22.41XA Multiple fractures of ribs, right side, initial encounter for closed fracture; T42.0X5A Adverse effect of hydantoin derivatives, initial encounter; F01.50 Vascular dementia, unspecified severity, without behavioral disturbance, psychotic disturbance, mood disturbance, and anxiety; I10 Essential (primary) hypertension; J44.9 Chronic obstructive pulmonary disease, unspecified; G35 Multiple sclerosis; G40.909 Epilepsy, unspecified, not intractable, without status epilepticus; H40.9 Unspecified glaucoma; H35.30 Unspecified macular degeneration; Z86.73 Personal history of transient ischemic attack (TIA), and cerebral infarction without residual deficits; G47.33 Obstructive sleep apnea (adult) (pediatric); Z85.828 Personal history of other malignant neoplasm of skin; Z79.899 Other long term (current) drug therapy; Z79.82 Long term (current) use of aspirin; Z88.8 Allergy status to other drugs, medicaments and biological substances; Z91.010 Allergy to peanuts; S20.221A Contusion of right back wall of thorax, initial encounter; D69.6 Thrombocytopenia, unspecified

== ENCOUNTER → 2019-05-28 | Outpatient (CLI) | payer MEDICARE ==
[~2019-05-28] MED LIST changes: +BILB100C PO; +KEPP250T5 PO; +KP F1200 PO; +LAMI1TAB7 PO; +LAMO100T80 PO; +MEMA10TA19 PO; -MEMA1TAB2 PO; +PROAAER10 INH; +VITA200020 PO; +VITA500T40 PO
[2019-05-28 19:39] LABS: BASO # 0.1 10^3/uL (0.0-0.2); BASO % 1.4 % (0.0-1.0); EOS # 0.2 10^3/uL (0.0-0.5); EOS % 3.1 % (0.0-3.0); HEMATOCRIT 43.3 % (42.0-52.0); HEMOGLOBIN 13.7 g/dl (13.5-17.5); LYMPH # 2.6 10^3/uL (1.5-5.0); MEAN CORPUSCULAR HEMOGLOBIN 30.9 pg (27.0-33.0); MEAN CORPUSCULAR HGB CONC 31.6 g/dl (32.0-36.5); MEAN CORPUSCULAR VOLUME 97.5 fl (80.0-96.0); MONO # 0.6 10^3/uL (0.0-0.8); MONO % 8.4 % (0.0-5.0); NEUTROPHILS # 3.6 10^3/uL (1.5-8.5); NEUTROPHILS % 50.7 % (36.0-66.0); PLATELET COUNT, AUTOMATED 237 10^3/uL (150-450); RED BLOOD COUNT 4.44 10^6/uL (4.30-6.10); WHITE BLOOD COUNT 7.2 10^3/uL (4.0-10.0)
[2019-05-28 19:43] LABS: ALBUMIN 3.6 GM/DL (3.2-5.2); ALT/SGPT 16 U/L (12-78); BILIRUBIN,TOTAL 0.3 MG/DL (0.2-1.0); BLOOD UREA NITROGEN 13 MG/DL (7-18); CALCIUM LEVEL 9.3 MG/DL (8.8-10.2); CARBON DIOXIDE LEVEL 35 MEQ/L (21-32); CHLORIDE LEVEL 106 MEQ/L (98-107); CREATININE FOR GFR 0.93 MG/DL (0.70-1.30); GLOMERULAR FILTRATION RATE > 60.0 (>42); GLUCOSE, FASTING 72 MG/DL (70-100); SODIUM LEVEL 146 MEQ/L (136-145); TOTAL PROTEIN 6.9 GM/DL (6.4-8.2)
== END ==
LOC: M LRY 14:37
PROVIDERS: ATTEND Psychiatry & Neurology Neurology
DX: R56.9 Unspecified convulsions (principal); Z51.81 Encounter for therapeutic drug level monitoring

== ENCOUNTER → 2019-12-30 | Outpatient (CLI) | payer MEDICARE ==
[~2019-12-30] MED LIST changes: +ASPI-546 PO; -ASPI1TAB15 PO; +KEPP10002 PO; -MECL12.575 PO; +MECL12.589 PO; -ROPI1TAB PO; +ROPI1TAB3 PO
--- NOTE | 2019-12-30 10:02 | REP ---
Clinical: Shortness of breath. Technique: PA and lateral. Comparison: 04/05/2019. Findings: Mediastinum and cardiac silhouette are within normal limits. Diffuse chronic age-related interstitial changes are appreciated. Right lower lobe infiltrate/consolidation along with elevation to the right hemidiaphragm is suspected. No obvious effusion. No pneumothorax. Skeletal structures intact. Impression: Chronic elevation to the right hemidiaphragm. Possible right lower lobe consolidation/infiltrate. Electronically Signed by Cliff Montano MD 12/30/2019 09:53 A
== END ==
LOC: M LRY 09:28
PROVIDERS: ATTEND Physician Assistant
DX: R91.8 Other nonspecific abnormal finding of lung field (principal); R06.02 Shortness of breath
CPT/HCPCS: 71046; 93005; G0463

== ENCOUNTER → 2019-12-30 | Outpatient (CLI) | payer MEDICARE ==
[~2019-12-30] MED LIST changes: -ASPI-546 PO; +ASPI1TAB15 PO; -KEPP10002 PO
== END ==
LOC: M LRY 09:26
PROVIDERS: ATTEND Physician Assistant
DX: R06.02 Shortness of breath (principal)

== ENCOUNTER → 2020-01-28 | Outpatient (REF) | payer MEDICARE ==
[~2020-01-28] MED LIST changes: +ASPI-546 PO; -ASPI1TAB15 PO; +KEPP10002 PO
[2020-03-17 12:05] LABS: BASO # 0.1 10^3/uL (0.0-0.2); BASO % 0.7 % (0.0-1.0); EOS # 0.1 10^3/uL (0.0-0.5); EOS % 1.9 % (0.0-3.0); HEMATOCRIT 41.9 % (42.0-52.0); HEMOGLOBIN 13.7 g/dl (13.5-17.5); LYMPH % 27.5 % (24.0-44.0); MEAN CORPUSCULAR HEMOGLOBIN 31.4 pg (27.0-33.0); MEAN CORPUSCULAR HGB CONC 32.7 g/dl (32.0-36.5); MEAN CORPUSCULAR VOLUME 96.1 fl (80.0-96.0); MONO # 0.4 10^3/uL (0.0-0.8); MONO % 5.9 % (0.0-5.0); NEUTROPHILS # 4.7 10^3/uL (1.5-8.5); NEUTROPHILS % 63.9 % (36.0-66.0); PLATELET COUNT, AUTOMATED 190 10^3/uL (150-450); RED BLOOD COUNT 4.36 10^6/uL (4.30-6.10); WHITE BLOOD COUNT 7.3 10^3/uL (4.0-10.0)
[2020-04-07 14:16] LABS: ALBUMIN 3.9 GM/DL (3.2-5.2); ALT/SGPT 33 U/L (12-78); BILIRUBIN,TOTAL 0.2 MG/DL (0.2-1.0); BLOOD UREA NITROGEN 15 MG/DL (7-18); CALCIUM LEVEL 9.5 MG/DL (8.8-10.2); CARBON DIOXIDE LEVEL 32 MEQ/L (21-32); CHLORIDE LEVEL 104 MEQ/L (98-107); CREATININE FOR GFR 0.83 MG/DL (0.70-1.30); GLOMERULAR FILTRATION RATE > 60.0 (>42); GLUCOSE, FASTING 90 MG/DL (70-100); PHENYTOIN (DILANTIN) 12.2 UG/ML (10.0-20.0); SODIUM LEVEL 141 MEQ/L (136-145); TOTAL PROTEIN 7.1 GM/DL (6.4-8.2)
== END ==
LOC: M LRY 14:38
PROVIDERS: ATTEND Psychiatry & Neurology Neurology
DX: G40.909 Epilepsy, unspecified, not intractable, without status epilepticus (principal)

== ENCOUNTER → 2020-02-10 | Outpatient (REF) | payer MEDICARE ==
[2020-02-10 16:32] LABS: BASO # 0.1 10^3/uL (0.0-0.2); BASO % 0.8 % (0.0-1.0); EOS # 0.2 10^3/uL (0.0-0.5); EOS % 1.8 % (0.0-3.0); HEMATOCRIT 42.5 % (42.0-52.0); HEMOGLOBIN 13.9 g/dl (13.5-17.5); LYMPH # 2.4 10^3/uL (1.5-5.0); LYMPH % 27.5 % (24.0-44.0); MEAN CORPUSCULAR HEMOGLOBIN 31.7 pg (27.0-33.0); MEAN CORPUSCULAR HGB CONC 32.7 g/dl (32.0-36.5); MEAN CORPUSCULAR VOLUME 96.8 fl (80.0-96.0); MONO # 0.5 10^3/uL (0.0-0.8); MONO % 5.9 % (0.0-5.0); NEUTROPHILS # 5.6 10^3/uL (1.5-8.5); NEUTROPHILS % 63.7 % (36.0-66.0); PLATELET COUNT, AUTOMATED 231 10^3/uL (150-450); RED BLOOD COUNT 4.39 10^6/uL (4.30-6.10); WHITE BLOOD COUNT 8.9 10^3/uL (4.0-10.0)
[2020-02-10 16:47] LABS: ALBUMIN 3.7 GM/DL (3.2-5.2); ALT/SGPT 33 U/L (12-78); BILIRUBIN,TOTAL 0.2 MG/DL (0.2-1.0); BLOOD UREA NITROGEN 19 MG/DL (7-18); CALCIUM LEVEL 9.6 MG/DL (8.8-10.2); CARBON DIOXIDE LEVEL 34 MEQ/L (21-32); CHLORIDE LEVEL 104 MEQ/L (98-107); CREATININE FOR GFR 0.93 MG/DL (0.70-1.30); GLOMERULAR FILTRATION RATE > 60.0 (>42); GLUCOSE, FASTING 170 MG/DL (70-100); POTASSIUM SERUM 4.3 MEQ/L (3.5-5.1); SODIUM LEVEL 144 MEQ/L (136-145); TOTAL PROTEIN 6.8 GM/DL (6.4-8.2)
== END ==
LOC: M SFHCLERA 15:50
PROVIDERS: ATTEND Family Medicine
DX: K80.20 Calculus of gallbladder without cholecystitis without obstruction (principal)

== ENCOUNTER 2020-02-14 10:31 | Emergency (ER) | payer MEDICARE ==
[~2020-02-14 10:31] MED LIST changes: -KEPP10002 PO
[2020-02-14] MEDS ORDERED: KEPP1TAB PO (10:52)
[2020-02-14] MEDS ORDERED: KEPP10002 PO ×2 (10:52)
[2020-02-14] MEDS ORDERED: DILA100C PO (10:53)
[2020-02-14] MEDS ORDERED: PHENYTOIN 100 MG/2 ML VIAL (J1165) IV ONE (11:15)
[2020-02-14 11:51] LABS: BASO # 0.1 10^3/uL (0.0-0.2); BASO % 0.6 % (0.0-1.0); EOS % 0.3 % (0.0-3.0); HEMATOCRIT 45.1 % (42.0-52.0); HEMOGLOBIN 14.8 g/dl (13.5-17.5); LYMPH # 1.3 10^3/uL (1.5-5.0); LYMPH % 13.5 % (24.0-44.0); MEAN CORPUSCULAR HEMOGLOBIN 31.4 pg (27.0-33.0); MEAN CORPUSCULAR HGB CONC 32.8 g/dl (32.0-36.5); MEAN CORPUSCULAR VOLUME 95.8 fl (80.0-96.0); MONO # 0.3 10^3/uL (0.0-0.8); MONO % 2.7 % (0.0-5.0); NEUTROPHILS # 7.7 10^3/uL (1.5-8.5); NEUTROPHILS % 82.5 % (36.0-66.0); PLATELET COUNT, AUTOMATED 211 10^3/uL (150-450); RED BLOOD COUNT 4.71 10^6/uL (4.30-6.10); WHITE BLOOD COUNT 9.3 10^3/uL (4.0-10.0)
[2020-02-14 12:19] LABS: ALT/SGPT 32 U/L (12-78); BILIRUBIN,DIRECT 0.1 MG/DL (0.0-0.2); BILIRUBIN,TOTAL 0.3 MG/DL (0.2-1.0); BLOOD UREA NITROGEN 17 MG/DL (7-18); CALCIUM LEVEL 9.2 MG/DL (8.8-10.2); CARBON DIOXIDE LEVEL 33 MEQ/L (21-32); CHLORIDE LEVEL 102 MEQ/L (98-107); GLOMERULAR FILTRATION RATE > 60.0 (>42); GLUCOSE, FASTING 112 MG/DL (70-100); PHENYTOIN (DILANTIN) 13.3 UG/ML (10.0-20.0); SODIUM LEVEL 141 MEQ/L (136-145); THYROID STIMULATING HORMONE 0.555 uIU/ML (0.358-3.740); TOTAL PROTEIN 7.2 GM/DL (6.4-8.2)
[2020-02-14 13:30] VITALS: BP 139/60
--- NOTE | 2020-02-25 21:09 | ECGEPIP ---
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
== END 2020-02-14 13:51 | disposition home or self-care (01) ==
LOC: M ED 10:31
DX: G40.909 Epilepsy, unspecified, not intractable, without status epilepticus (principal); I10 Essential (primary) hypertension; Z86.73 Personal history of transient ischemic attack (TIA), and cerebral infarction without residual deficits; G47.33 Obstructive sleep apnea (adult) (pediatric); Z66 Do not resuscitate; Z79.82 Long term (current) use of aspirin; Z79.899 Other long term (current) drug therapy; Z88.8 Allergy status to other drugs, medicaments and biological substances; Z91.018 Allergy to other foods
CPT/HCPCS: 80048; 80076; 80180; 80185; 84443; 85025; 93005; 93041; 94760; 96374; 99285; J1165

== ENCOUNTER → 2020-03-30 | Outpatient (CLI) | payer MEDICARE ==
[~2020-03-30] MED LIST changes: +KEPP10002 PO
[2020-03-30 16:27] LABS: BASO # 0.1 10^3/uL (0.0-0.2); BASO % 1.2 % (0.0-1.0); EOS # 0.4 10^3/uL (0.0-0.5); EOS % 4.7 % (0.0-3.0); HEMATOCRIT 45.9 % (42.0-52.0); HEMOGLOBIN 14.8 g/dl (13.5-17.5); LYMPH # 3.3 10^3/uL (1.5-5.0); LYMPH % 42.2 % (24.0-44.0); MEAN CORPUSCULAR HEMOGLOBIN 31.4 pg (27.0-33.0); MEAN CORPUSCULAR HGB CONC 32.2 g/dl (32.0-36.5); MEAN CORPUSCULAR VOLUME 97.5 fl (80.0-96.0); MONO # 0.6 10^3/uL (0.0-0.8); MONO % 8.3 % (0.0-5.0); NEUTROPHILS # 3.4 10^3/uL (1.5-8.5); NEUTROPHILS % 43.5 % (36.0-66.0); PLATELET COUNT, AUTOMATED 209 10^3/uL (150-450); RED BLOOD COUNT 4.71 10^6/uL (4.30-6.10); WHITE BLOOD COUNT 7.7 10^3/uL (4.0-10.0)
[2020-03-30 16:33] LABS: ALT/SGPT 40 U/L (12-78); BILIRUBIN,TOTAL 0.3 MG/DL (0.2-1.0); BLOOD UREA NITROGEN 18 MG/DL (7-18); CALCIUM LEVEL 9.2 MG/DL (8.8-10.2); CARBON DIOXIDE LEVEL 38 MEQ/L (21-32); CHLORIDE LEVEL 103 MEQ/L (98-107); CREATININE FOR GFR 1.12 MG/DL (0.70-1.30); GLOMERULAR FILTRATION RATE > 60.0 (>42); GLUCOSE, FASTING 94 MG/DL (70-100); PHENYTOIN (DILANTIN) 24.8 UG/ML (10.0-20.0); POTASSIUM SERUM 3.9 MEQ/L (3.5-5.1); SODIUM LEVEL 142 MEQ/L (136-145); TOTAL PROTEIN 7.5 GM/DL (6.4-8.2)
== END ==
LOC: M WUC 14:17
PROVIDERS: ATTEND Psychiatry & Neurology Neurology
DX: G40.89 Other seizures (principal)

== ENCOUNTER → 2020-04-09 | Outpatient (CLI) | payer MEDICARE | LOC: M WUC 11:51 | PROVIDERS: ATTEND Psychiatry & Neurology Neurology | DX: R56.9 Unspecified convulsions (principal) ==

== ENCOUNTER → 2020-05-18 | Outpatient (CLI) | payer MEDICARE ==
[~2020-05-18] MED LIST changes: -MECL12.589 PO; +MECL12.590 PO
== END ==
LOC: M WUC 11:07
PROVIDERS: ATTEND Psychiatry & Neurology Neurology
DX: G40.909 Epilepsy, unspecified, not intractable, without status epilepticus (principal)

== ENCOUNTER → 2020-11-30 | Outpatient (CLI) | payer MEDICARE ==
[~2020-11-30] MED LIST changes: +GABA-282 PO; -GABA-843 PO; -GALA12TA PO; +MECL-136 PO; -MECL12.590 PO; +[UNRECOGNIZED DRUG - CODE] PO
== END ==
LOC: M WUC 12:04
PROVIDERS: ATTEND Psychiatry & Neurology Neurology
DX: R56.9 Unspecified convulsions (principal)

== ENCOUNTER → 2021-02-09 | Outpatient (CLI) | payer MEDICARE ==
[2021-02-09 16:01] LABS: BASO # 0.1 10^3/uL (0.0-0.2); BASO % 0.9 % (0.0-1.0); EOS # 0.2 10^3/uL (0.0-0.5); EOS % 2.8 % (0.0-3.0); HEMATOCRIT 42.6 % (42.0-52.0); HEMOGLOBIN 13.9 g/dl (13.5-17.5); LYMPH # 2.2 10^3/uL (1.5-5.0); MEAN CORPUSCULAR HEMOGLOBIN 32.4 pg (27.0-33.0); MEAN CORPUSCULAR HGB CONC 32.6 g/dl (32.0-36.5); MEAN CORPUSCULAR VOLUME 99.3 fl (80.0-96.0); MONO # 0.7 10^3/uL (0.0-0.8); MONO % 8.7 % (2.0-8.0); NEUTROPHILS # 4.9 10^3/uL (1.5-8.5); NEUTROPHILS % 60.2 % (36.0-66.0); PLATELET COUNT, AUTOMATED 223 10^3/uL (150-450); RED BLOOD COUNT 4.29 10^6/uL (4.30-6.10); WHITE BLOOD COUNT 8.1 10^3/uL (4.0-10.0)
[2021-02-09 16:33] LABS: ALBUMIN 3.2 GM/DL (3.2-5.2); ALT/SGPT 39 U/L (12-78); BILIRUBIN,TOTAL 0.3 MG/DL (0.2-1.0); BLOOD UREA NITROGEN 16 MG/DL (7-18); CALCIUM LEVEL 8.7 MG/DL (8.8-10.2); CARBON DIOXIDE LEVEL 35 MEQ/L (21-32); CHLORIDE LEVEL 107 MEQ/L (98-107); CREATININE FOR GFR 0.71 MG/DL (0.70-1.30); GLOMERULAR FILTRATION RATE > 60.0 (>35); GLUCOSE, FASTING 96 MG/DL (70-100); PHENYTOIN (DILANTIN) 2.7 UG/ML (10.0-20.0); SODIUM LEVEL 145 MEQ/L (136-145); TOTAL PROTEIN 6.6 GM/DL (6.4-8.2); VALPROIC ACID (DEPAKOTE) 28.1 UG/ML (50.0-100.0)
== END ==
LOC: M WUC 10:00
PROVIDERS: ATTEND Psychiatry & Neurology Neurology
DX: R56.9 Unspecified convulsions (principal)

== ENCOUNTER → 2021-02-11 | Outpatient (REF) | payer MEDICARE | LOC: M SFHCLERA 11:57 | PROVIDERS: ATTEND Nurse Practitioner Family | DX: R19.7 Diarrhea, unspecified (principal) ==

== ENCOUNTER → 2021-02-11 | Outpatient (CLI) | payer MEDICARE ==
[2021-02-11 15:54] LABS: BASO # 0.1 10^3/uL (0.0-0.2); BASO % 1.1 % (0.0-1.0); EOS # 0.3 10^3/uL (0.0-0.5); EOS % 3.8 % (0.0-3.0); HEMATOCRIT 42.6 % (42.0-52.0); HEMOGLOBIN 14.1 g/dl (13.5-17.5); LYMPH # 2.3 10^3/uL (1.5-5.0); MEAN CORPUSCULAR HEMOGLOBIN 32.3 pg (27.0-33.0); MEAN CORPUSCULAR HGB CONC 33.1 g/dl (32.0-36.5); MEAN CORPUSCULAR VOLUME 97.5 fl (80.0-96.0); MONO # 0.9 10^3/uL (0.0-0.8); MONO % 12.1 % (2.0-8.0); NEUTROPHILS # 3.8 10^3/uL (1.5-8.5); NEUTROPHILS % 51.6 % (36.0-66.0); PLATELET COUNT, AUTOMATED 275 10^3/uL (150-450); RED BLOOD COUNT 4.37 10^6/uL (4.30-6.10); WHITE BLOOD COUNT 7.3 10^3/uL (4.0-10.0)
[2021-02-11 16:14] LABS: ALBUMIN 3.4 GM/DL (3.2-5.2); ALT/SGPT 36 U/L (12-78); BILIRUBIN,TOTAL 0.2 MG/DL (0.2-1.0); BLOOD UREA NITROGEN 12 MG/DL (7-18); CALCIUM LEVEL 9.2 MG/DL (8.8-10.2); CARBON DIOXIDE LEVEL 38 MEQ/L (21-32); CHLORIDE LEVEL 104 MEQ/L (98-107); CREATININE FOR GFR 0.91 MG/DL (0.70-1.30); GLOMERULAR FILTRATION RATE > 60.0 (>35); GLUCOSE, FASTING 108 MG/DL (70-100); POTASSIUM SERUM 3.9 MEQ/L (3.5-5.1); SODIUM LEVEL 143 MEQ/L (136-145)
== END ==
LOC: M LAB 14:56
PROVIDERS: ATTEND Nurse Practitioner Family
DX: R19.7 Diarrhea, unspecified (principal)
CPT/HCPCS: 36415; 80053; 85025; 87505; G0463

== ENCOUNTER → 2021-08-23 | Outpatient (CLI) | payer OTHER ==
[2021-08-23 15:37] LABS: BASO # 0.1 10^3/uL (0.0-0.2); EOS # 0.3 10^3/uL (0.0-0.5); EOS % 3.7 % (0.0-3.0); HEMOGLOBIN 14.9 g/dl (13.5-17.5); LYMPH # 2.9 10^3/uL (1.5-5.0); LYMPH % 37.7 % (24.0-44.0); MEAN CORPUSCULAR HEMOGLOBIN 32.3 pg (27.0-33.0); MEAN CORPUSCULAR HGB CONC 33.9 g/dl (32.0-36.5); MEAN CORPUSCULAR VOLUME 95.2 fl (80.0-96.0); MONO # 0.6 10^3/uL (0.0-0.8); MONO % 7.2 % (2.0-8.0); NEUTROPHILS # 3.8 10^3/uL (1.5-8.5); NEUTROPHILS % 50.1 % (36.0-66.0); PLATELET COUNT, AUTOMATED 190 10^3/uL (150-450); RED BLOOD COUNT 4.62 10^6/uL (4.30-6.10); WHITE BLOOD COUNT 7.6 10^3/uL (4.0-10.0)
[2021-08-23 16:20] LABS: ALT/SGPT 37 U/L (12-78); BILIRUBIN,TOTAL 0.2 MG/DL (0.2-1.0); BLOOD UREA NITROGEN 19 MG/DL (7-18); CALCIUM LEVEL 9.5 MG/DL (8.8-10.2); CARBON DIOXIDE LEVEL 37 MEQ/L (21-32); CHLORIDE LEVEL 102 MEQ/L (98-107); CREATININE FOR GFR 0.85 MG/DL (0.70-1.30); GLOMERULAR FILTRATION RATE > 60.0 (>35); GLUCOSE, FASTING 83 MG/DL (70-100); PHENYTOIN (DILANTIN) 5.7 UG/ML (10.0-20.0); POTASSIUM SERUM 4.2 MEQ/L (3.5-5.1); SODIUM LEVEL 141 MEQ/L (136-145); TOTAL PROTEIN 7.6 GM/DL (6.4-8.2)
== END ==
LOC: M WUC 14:13
PROVIDERS: ATTEND Psychiatry & Neurology Neurology
DX: R56.9 Unspecified convulsions (principal)

== ENCOUNTER → 2021-10-27 | Outpatient (CLI) | payer MEDICARE, OTHER | LOC: M RAD 13:06 | PROVIDERS: ATTEND Internal Medicine Gastroenterology | DX: R10.13 Epigastric pain (principal); K80.70 Calculus of gallbladder and bile duct without cholecystitis without obstruction ==

== ENCOUNTER → 2021-11-25 | Outpatient (CLI) | payer OTHER | LOC: M LABSMTC 11:36 | PROVIDERS: ATTEND Internal Medicine Gastroenterology | DX: Z01.812 Encounter for preprocedural laboratory examination (principal); Z20.822 Contact with and (suspected) exposure to COVID-19 ==

== ENCOUNTER → 2021-12-02 | Outpatient (CLI) | payer OTHER ==
[~2021-12-02] MED LIST changes: +THERTAB52 PO
== END ==
LOC: M LABSMTC 11:44
PROVIDERS: ATTEND Anesthesiology
DX: Z01.812 Encounter for preprocedural laboratory examination (principal); Z20.822 Contact with and (suspected) exposure to COVID-19

== ENCOUNTER 2021-12-07 13:21 | Day surgery (SDC) | payer OTHER ==
[~2021-12-07] VITALS: Ht 170.2 cm; Wt 76.7 kg
[~2021-12-07 13:21] MED LIST changes: +NS 1,000 ML IV ONE
[2021-12-07] MEDS ORDERED: LR 1,000 ML IV SCH ×2 (13:55→16:50)
[2021-12-07] MEDS ORDERED: MEMA10TA19 PO (13:58)
[2021-12-07] MEDS ORDERED: LIDOCAINE 2% 100MG/5ML SDV (FOR ANES.) As Ordered ONE (14:40)
[2021-12-07] MEDS ORDERED: dexameTHASONE 4 MG/ML 1ML VIAL (J1100 PER 1MG) As Ordered ONE (14:40)
[2021-12-07] MEDS ORDERED: propofoL 200 MG/20 ML VIAL As Ordered ONE (14:40)
[2021-12-07] MEDS ORDERED: MIDAZOLAM INJ 2MG/2ML VIAL (J2250 PER 1MG) As Ordered ONE (14:40)
[2021-12-07] MEDS ORDERED: fentaNYL 100 MCG/2 ML INJECTION As Ordered ONE (14:40)
[2021-12-07] MEDS ORDERED: ONDANSETRON 4MG 2ML VIAL As Ordered ONE (14:40)
[2021-12-07] MEDS ORDERED: ROCURONIUM BROMIDE 50 MG/5 ML VIAL As Ordered ONE (14:40)
[2021-12-07] MEDS ORDERED: ISOVUE-300 61% 50ML VIAL As Ordered ONE (15:24)
[2021-12-07] MEDS ORDERED: SUGAMMADEX SODIUM 500 MG/5 ML VIAL (BRIDION) As Ordered ONE (15:59)
[2021-12-07] MEDS ORDERED: ePHEDrine SULFATE 25 MG/5 ML(5MG/ML) SYRINGE As Ordered ONE (16:09)
[2021-12-07] MEDS ORDERED: PHENYLephrine 500MCG 5ML (100MCG/ML) SYRINGE As Ordered ONE (16:09)
[2021-12-07] MEDS ORDERED: HYDROMORPHONE HCL 0.5 MG/ 0.5 ML SYRINGE (J1170 PER 1) IV PRN (16:50)
[2021-12-07] MEDS ORDERED: MEPERIDINE INJ 25 MG/ML VIAL (J2175) IV PRN (16:50)
[2021-12-07] MEDS ORDERED: ONDANSETRON 4MG 2ML VIAL IV PRN (16:50)
[2021-12-07] MEDS ORDERED: oxyCODONE 5MG TAB PO PRN (16:50)
[2021-12-07] MEDS ORDERED: ALBUTEROL SULFATE 2.5 MG/0.5 ML INH NEB SOLN INH PRN (16:50)
[2021-12-07] MEDS ORDERED: METOCLOPRAMIDE INJ 10MG/2ML VIAL (J2765 PER 1) IV PRN (16:50)
[2021-12-07 17:50] VITALS: BP 139/67
== END 2021-12-07 18:01 | disposition home or self-care (01) ==
LOC: M SDC 13:21
PROVIDERS: ATTEND Internal Medicine Gastroenterology
DX: R93.2 Abnormal findings on diagnostic imaging of liver and biliary tract (principal); K80.50 Calculus of bile duct without cholangitis or cholecystitis without obstruction; I10 Essential (primary) hypertension; E78.5 Hyperlipidemia, unspecified; G47.33 Obstructive sleep apnea (adult) (pediatric); G40.909 Epilepsy, unspecified, not intractable, without status epilepticus; Z79.02 Long term (current) use of antithrombotics/antiplatelets; Z79.899 Other long term (current) drug therapy; Z79.82 Long term (current) use of aspirin; J44.9 Chronic obstructive pulmonary disease, unspecified; Z86.73 Personal history of transient ischemic attack (TIA), and cerebral infarction without residual deficits; Z91.010 Allergy to peanuts; Z88.8 Allergy status to other drugs, medicaments and biological substances
CPT/HCPCS: 43264; 43274; 74330; C2625; J1100; J2250; J2370; J2405; J3010; Q9967

== ENCOUNTER → 2021-12-16 | Outpatient (CLI) | payer OTHER ==
[~2021-12-16] MED LIST changes: -NS 1,000 ML IV ONE
[2021-12-16 12:58] LABS: BASO # 0.1 10^3/uL (0.0-0.2); BASO % 0.9 % (0.0-1.0); EOS # 0.3 10^3/uL (0.0-0.5); EOS % 3.1 % (0.0-3.0); HEMATOCRIT 45.4 % (42.0-52.0); HEMOGLOBIN 14.9 g/dl (13.5-17.5); LYMPH # 2.7 10^3/uL (1.5-5.0); LYMPH % 32.8 % (24.0-44.0); MEAN CORPUSCULAR HEMOGLOBIN 32.3 pg (27.0-33.0); MEAN CORPUSCULAR HGB CONC 32.8 g/dl (32.0-36.5); MEAN CORPUSCULAR VOLUME 98.5 fl (80.0-96.0); MONO # 0.5 10^3/uL (0.0-0.8); MONO % 5.9 % (2.0-8.0); NEUTROPHILS # 4.6 10^3/uL (1.5-8.5); NEUTROPHILS % 57.1 % (36.0-66.0); PLATELET COUNT, AUTOMATED 222 10^3/uL (150-450); RED BLOOD COUNT 4.61 10^6/uL (4.30-6.10); WHITE BLOOD COUNT 8.1 10^3/uL (4.0-10.0)
[2021-12-16 13:24] LABS: ALBUMIN 3.9 GM/DL (3.2-5.2); ALT/SGPT 33 U/L (12-78); BILIRUBIN,DIRECT 0.2 MG/DL (0.0-0.2); BILIRUBIN,TOTAL 0.3 MG/DL (0.2-1.0); BLOOD UREA NITROGEN 14 MG/DL (7-18); CREATININE FOR GFR 0.75 MG/DL (0.70-1.30); GLOMERULAR FILTRATION RATE > 60.0 (>35); TOTAL PROTEIN 7.5 GM/DL (6.4-8.2)
== END ==
LOC: M LAB 12:08
PROVIDERS: ATTEND Internal Medicine Gastroenterology
DX: K80.50 Calculus of bile duct without cholangitis or cholecystitis without obstruction (principal); R10.13 Epigastric pain

== ENCOUNTER → 2022-01-23 | Outpatient (CLI) | payer OTHER | LOC: M LABSMTC 10:46 | PROVIDERS: ATTEND Anesthesiology | DX: Z01.812 Encounter for preprocedural laboratory examination (principal); Z20.822 Contact with and (suspected) exposure to COVID-19 ==

== ENCOUNTER 2022-01-27 10:13 | Day surgery (SDC) | payer OTHER ==
[~2022-01-27] VITALS: Ht 170.2 cm; Wt 74.4 kg
[~2022-01-27 10:13] MED LIST changes: +NS 1,000 ML IV ONE
[2022-01-27] MEDS ORDERED: ePHEDrine SULFATE 25 MG/5 ML(5MG/ML) SYRINGE As Ordered ONE (12:02)
[2022-01-27] MEDS ORDERED: LIDOCAINE 2% 100MG/5ML SDV (FOR ANES.) As Ordered ONE (12:03)
[2022-01-27] MEDS ORDERED: propofoL 200 MG/20 ML VIAL As Ordered ONE ×2 (12:03→12:25)
[2022-01-27] MEDS ORDERED: fentaNYL 100 MCG/2 ML INJECTION As Ordered ONE (12:10)
[2022-01-27 13:15] VITALS: BP 138/102
[2022-01-27 15:39] LABS: CLOSTRIDIUM DIFFICILE PCR NEGATIVE (NEGATIVE)
== END 2022-01-27 13:18 | disposition home or self-care (01) ==
LOC: M OPP 10:13
PROVIDERS: ATTEND Internal Medicine Gastroenterology
DX: D12.7 Benign neoplasm of rectosigmoid junction (principal); D12.2 Benign neoplasm of ascending colon; K63.89 Other specified diseases of intestine; K52.9 Noninfective gastroenteritis and colitis, unspecified; K29.70 Gastritis, unspecified, without bleeding; Z46.51 Encounter for fitting and adjustment of gastric lap band; K64.4 Residual hemorrhoidal skin tags; K64.8 Other hemorrhoids; I10 Essential (primary) hypertension; J44.9 Chronic obstructive pulmonary disease, unspecified; Z86.69 Personal history of other diseases of the nervous system and sense organs; Z86.73 Personal history of transient ischemic attack (TIA), and cerebral infarction without residual deficits; Z79.02 Long term (current) use of antithrombotics/antiplatelets; Z79.1 Long term (current) use of non-steroidal anti-inflammatories (NSAID); Z79.51 Long term (current) use of inhaled steroids; Z79.52 Long term (current) use of systemic steroids; Z79.899 Other long term (current) drug therapy; Z88.8 Allergy status to other drugs, medicaments and biological substances
CPT/HCPCS: 43239; 43247; 45380; 45385; 87324; 88305; J3010

== ENCOUNTER → 2022-04-25 | Outpatient (REF) | payer MEDICARE, OTHER ==
[~2022-04-25] MED LIST changes: +ALBU8.5H INH; +AMOX875T2 PO; +BACI1CAP PO; +FLUTISP; +GABA800T4 PO; +MONT10TA97 PO; +NEUR800T PO; -NS 1,000 ML IV ONE; +OMEGCAP4 PO; +PANT20TA6 PO; +VITMTA PO; +ZONI50CA11 PO; +oxygen
== END ==
LOC: M SFHCDERM 14:19
PROVIDERS: ATTEND Nurse Practitioner Family
DX: L82.1 Other seborrheic keratosis (principal)

== ENCOUNTER 2022-04-27 17:33 | Inpatient (IN) | payer OTHER, MEDICARE ==
[~2022-04-27] VITALS: Ht 170.2 cm; Wt 73.2 kg
[~2022-04-27 17:33] MED LIST changes: -ALBU8.5H INH; -AMOX875T2 PO; -BACI1CAP PO; -FLUTISP; -GABA800T4 PO; -MONT10TA97 PO; -NEUR800T PO; -OMEGCAP4 PO; -PANT20TA6 PO; -VITMTA PO; -ZONI50CA11 PO; -oxygen
[2022-04-27] MEDS ORDERED: OMEGCAP4 PO (18:48)
[2022-04-27] MEDS ORDERED: ZONI50CA11 PO (18:48)
[2022-04-27] MEDS ORDERED: GABA800T4 PO (18:48)
[2022-04-27] MEDS ORDERED: DILA100C PO (18:48)
[2022-04-27] MEDS ORDERED: PANT20TA6 PO (18:48)
[2022-04-27] MEDS ORDERED: oxygen (18:48)
[2022-04-27] MEDS ORDERED: MONT10TA97 PO (18:48)
[2022-04-27] MEDS ORDERED: FLUTISP (18:48)
[2022-04-27] MEDS ORDERED: NS 1,000 ML IV ONE (19:15)
[2022-04-27] MEDS ORDERED: ONDANSETRON 4MG 2ML VIAL IV ONE (19:15)
[2022-04-27] MEDS ORDERED: ISOVUE-370 76% 100ML VIAL As Ordered ONE (19:22)
[2022-04-27 19:47] LABS: BASO % 0.2 % (0.0-1.0); HEMATOCRIT 45.8 % (42.0-52.0); LYMPH # 1.3 10^3/uL (1.5-5.0); LYMPH % 5.5 % (24.0-44.0); MEAN CORPUSCULAR HEMOGLOBIN 31.6 pg (27.0-33.0); MEAN CORPUSCULAR HGB CONC 32.8 g/dl (32.0-36.5); MEAN CORPUSCULAR VOLUME 96.4 fl (80.0-96.0); MONO % 7.7 % (2.0-8.0); NEUTROPHILS # 20.2 10^3/uL (1.5-8.5); NEUTROPHILS % 85.7 % (36.0-66.0); PLATELET COUNT, AUTOMATED 212 10^3/uL (150-450); RED BLOOD COUNT 4.75 10^6/uL (4.30-6.10); WHITE BLOOD COUNT 23.6 10^3/uL (4.0-10.0)
[2022-04-27 19:55] LABS: ALBUMIN 3.5 G/DL (3.2-5.2); BILIRUBIN,DIRECT 0.3 MG/DL (<0.4); BILIRUBIN,TOTAL 0.7 MG/DL (0.3-1.2); TOTAL PROTEIN 7.2 G/DL (5.7-8.2)
[2022-04-27 20:27] LABS: MONO # 1.8 10^3/uL (0.0-0.8)
[2022-04-27] MEDS ORDERED: PIPERACILLIN/TAZOBACTAM SOD 3.375 GM in D5W MINI-BAG PLUS 50 ML IV ONE (21:00)
[2022-04-27] MEDS ORDERED: MORPHINE 2 MG/ML 1ML VIAL IV ONE (22:15)
[2022-04-27 22:36] LABS: RSV AMPLIFICATION NEGATIVE (NEGATIVE)
[2022-04-28] VITALS (9 sets, daily range): BP systolic 115–135; BP diastolic 54–76
[2022-04-28] MEDS ORDERED: ACETAMINOPHEN TAB 650MG DOSE (2X325MG) PO PRN (00:30)
[2022-04-28] MEDS ORDERED: ONDANSETRON 4MG 2ML VIAL IV PRN (00:30)
[2022-04-28] MEDS ORDERED: ALBU8.5H INH (00:57)
[2022-04-28] MEDS ORDERED: NEUR800T PO (00:57)
[2022-04-28] MEDS ORDERED: ZONI50CA11 PO (00:57)
[2022-04-28] MEDS ORDERED: KEPP10002 PO (00:57)
[2022-04-28] MEDS ORDERED: PANT20TA6 PO (00:57)
[2022-04-28] MEDS ORDERED: DILA100C PO (00:57)
[2022-04-28] MEDS ORDERED: SPIR1CAP INH (00:57)
[2022-04-28] MEDS ORDERED: OMEGCAP4 PO (00:57)
[2022-04-28] MEDS ORDERED: VITMTA PO (00:59)
[2022-04-28] MEDS ORDERED: ALBUTEROL SULFATE 2.5 MG/0.5 ML INH NEB SOLN NEB PRN (01:00)
[2022-04-28] MEDS ORDERED: HOME MED LIST COMPLETE! XX SCH ×2 (01:00→17:35)
[2022-04-28] MEDS ORDERED: HYDROmorphone 2 MG TAB PO PRN (01:00)
[2022-04-28] MEDS: D5W/0.9% SODIUM CHLORIDE 1,000 ML IV SCH ×3 (02:28→23:27)
[2022-04-28] MEDS: PHENYTOIN ER 100 MG CAP PO SCH ×2 (02:28→20:33)
[2022-04-28] MEDS: ZONISAMIDE 50 MG CAP (ZONEGRAN) PO SCH ×2 (02:49→20:32)
[2022-04-28] MEDS: PIPERACILLIN/TAZOBACTAM SOD 3.375 GM in D5W MINI-BAG PLUS 50 ML IV SCH ×4 (04:21→20:38)
[2022-04-28 08:25] LABS: BASO # 0.1 10^3/uL (0.0-0.2); BASO % 0.2 % (0.0-1.0); EOS # 0.1 10^3/uL (0.0-0.5); EOS % 0.5 % (0.0-3.0); HEMATOCRIT 38.5 % (42.0-52.0); LYMPH # 1.5 10^3/uL (1.5-5.0); LYMPH % 7.4 % (24.0-44.0); MEAN CORPUSCULAR HEMOGLOBIN 31.7 pg (27.0-33.0); MEAN CORPUSCULAR HGB CONC 32.5 g/dl (32.0-36.5); MEAN CORPUSCULAR VOLUME 97.7 fl (80.0-96.0); MONO % 8.1 % (2.0-8.0); NEUTROPHILS # 17.3 10^3/uL (1.5-8.5); NEUTROPHILS % 83.1 % (36.0-66.0); PLATELET COUNT, AUTOMATED 155 10^3/uL (150-450); RED BLOOD COUNT 3.94 10^6/uL (4.30-6.10); WHITE BLOOD COUNT 20.9 10^3/uL (4.0-10.0)
[2022-04-28 08:32] LABS: HEMOGLOBIN 12.5 g/dl (13.5-17.5); MONO # 1.7 10^3/uL (0.0-0.8)
[2022-04-28] MEDS ORDERED: PNEUMOCOCCAL VACCINE 0.5ML SYRINGE (PNEUMOVAX 23) IM.IMMUN ONE (09:00)
[2022-04-28] MEDS ORDERED: FLUBLOK(EGG FREE)(QUAD)INFLUENZA VACC 0.5ML SYRINGE 18YRS & OLDER IM.IMMUN ONE (09:00)
[2022-04-28] MEDS ORDERED: HEPARIN SOD (PORCINE) 5000UNITS/ML 1ML VIAL/SYRINGE SC SCH (09:00)
[2022-04-28 09:01] LABS: ALBUMIN 2.9 G/DL (3.2-5.2); ALT/SGPT 33 U/L (7.0-40); BILIRUBIN,TOTAL 0.6 MG/DL (0.3-1.2); BLOOD UREA NITROGEN 26 MG/DL (9-23); CALCIUM LEVEL 9.1 MG/DL (8.3-10.6); CARBON DIOXIDE LEVEL 29 MMOL/L (20-31); CHLORIDE LEVEL 104 MMOL/L (98-107); CREATININE FOR GFR 0.77 MG/DL (0.70-1.30); GLOMERULAR FILTRATION RATE > 60.0 (>35); GLUCOSE, FASTING 148 MG/DL (74-106); POTASSIUM SERUM 3.6 MMOL/L (3.5-5.1); SODIUM LEVEL 141 MMOL/L (136-145); TOTAL PROTEIN 6.1 G/DL (5.7-8.2)
[2022-04-28] MEDS: GABAPENTIN 400MG CAP PO SCH ×2 (10:27→20:33)
[2022-04-28] MEDS: MONTELUKAST 10 MG TAB PO SCH (10:28)
[2022-04-28] MEDS: OMEGA-3 1000MG CAPSULE PO SCH (10:28)
[2022-04-28] MEDS: MULTIVITAMINS/MINERALS THERAP 1 TAB PO SCH (10:28)
[2022-04-28] MEDS: levETIRAcetam 250MG TABLET (KEPPRA) PO SCH ×2 (10:29→20:32)
[2022-04-28] MEDS ORDERED: MORPHINE 2 MG/ML 1ML VIAL IV PRN (10:40)
[2022-04-28] MEDS: FLUTICASONE PROP 0.05% NASAL SPRAY 16 GM (FLONASE) SCH (10:47)
[2022-04-28] MEDS: PANTOPRAZOLE 40MG VIAL IV SCH (10:47)
[2022-04-28] MEDS: TIOTROPIUM INHALER/CAPSULE (SPIRIVA) INH SCH (11:35)
[2022-04-28] MEDS ORDERED: LIDOCAINE 1% MDV 20ML VIAL As Ordered ONE (14:34)
[2022-04-28] MEDS ORDERED: fentaNYL 100 MCG/2 ML INJECTION As Ordered ONE (14:34)
[2022-04-28] MEDS ORDERED: diphenhydrAMINE 50MG/ML VIAL As Ordered ONE (14:34)
[2022-04-28] MEDS ORDERED: MIDAZOLAM INJ 2MG/2ML VIAL (J2250 PER 1MG) As Ordered ONE (14:34)
[2022-04-28] MEDS ORDERED: cefTRIAXone SOD 1GM VIAL (J0696 PER 250MG) As Ordered ONE (14:47)
[2022-04-28] MEDS ORDERED: cefTRIAXone SOD 1 GM in D5W MINI-BAG PLUS 50 ML IV ONE (14:50)
[2022-04-28] MEDS ORDERED: PHEN100C PO (17:32)
[2022-04-29 01:10] VITALS: BP 112/58
[2022-04-29] MEDS: PIPERACILLIN/TAZOBACTAM SOD 3.375 GM in D5W MINI-BAG PLUS 50 ML IV SCH ×4 (04:01→21:30)
[2022-04-29 05:10] VITALS: BP 123/54
[2022-04-29] MEDS: TIOTROPIUM INHALER/CAPSULE (SPIRIVA) INH SCH (06:08)
[2022-04-29 06:10] LABS: BASO % 0.2 % (0.0-1.0); EOS % 0.2 % (0.0-3.0); HEMATOCRIT 34.8 % (42.0-52.0); HEMOGLOBIN 11.1 g/dl (13.5-17.5); LYMPH # 1.2 10^3/uL (1.5-5.0); LYMPH % 9.7 % (24.0-44.0); MEAN CORPUSCULAR HEMOGLOBIN 32.2 pg (27.0-33.0); MEAN CORPUSCULAR HGB CONC 31.9 g/dl (32.0-36.5); MEAN CORPUSCULAR VOLUME 100.9 fl (80.0-96.0); MONO % 7.9 % (2.0-8.0); NEUTROPHILS # 10.3 10^3/uL (1.5-8.5); NEUTROPHILS % 81.6 % (36.0-66.0); PLATELET COUNT, AUTOMATED 148 10^3/uL (150-450); RED BLOOD COUNT 3.45 10^6/uL (4.30-6.10); WHITE BLOOD COUNT 12.7 10^3/uL (4.0-10.0)
[2022-04-29 07:32] LABS: ALBUMIN 2.3 G/DL (3.2-5.2); ALT/SGPT 31 U/L (7.0-40); BILIRUBIN,TOTAL 0.5 MG/DL (0.3-1.2); BLOOD UREA NITROGEN 21 MG/DL (9-23); CALCIUM LEVEL 8.1 MG/DL (8.3-10.6); CARBON DIOXIDE LEVEL 31 MMOL/L (20-31); CHLORIDE LEVEL 104 MMOL/L (98-107); CREATININE FOR GFR 0.84 MG/DL (0.70-1.30); GLOMERULAR FILTRATION RATE > 60.0 (>35); GLUCOSE, FASTING 142 MG/DL (74-106); POTASSIUM SERUM 3.4 MMOL/L (3.5-5.1); SODIUM LEVEL 143 MMOL/L (136-145); TOTAL PROTEIN 5.5 G/DL (5.7-8.2)
[2022-04-29] MEDS: MONTELUKAST 10 MG TAB PO SCH (09:29)
[2022-04-29] MEDS: GABAPENTIN 400MG CAP PO SCH ×2 (09:29→19:10)
[2022-04-29] MEDS: OMEGA-3 1000MG CAPSULE PO SCH (09:29)
[2022-04-29] MEDS: PANTOPRAZOLE 40MG VIAL IV SCH (09:29)
[2022-04-29] MEDS: MULTIVITAMINS/MINERALS THERAP 1 TAB PO SCH (09:29)
[2022-04-29] MEDS: levETIRAcetam 250MG TABLET (KEPPRA) PO SCH ×2 (09:29→19:10)
[2022-04-29] MEDS: FLUTICASONE PROP 0.05% NASAL SPRAY 16 GM (FLONASE) SCH (09:30)
[2022-04-29 10:00] VITALS: BP 103/54
[2022-04-29] MEDS ORDERED: POTASSIUM CHLORIDE 10MEQ SR TABLET PO ONE (12:00)
[2022-04-29] MEDS: ENOXAPARIN 40MG/0.4ML SYRINGE (J1650 PER 10MG) SC SCH (12:23)
[2022-04-29] MEDS: ASPIRIN 81MG ENTERIC TABLET PO SCH (12:23)
[2022-04-29] MEDS: CLOPIDOGREL 75 MG TAB PO SCH (12:23)
[2022-04-29 14:00] VITALS: BP 117/54
[2022-04-29] MEDS: D5W/0.9% SODIUM CHLORIDE 1,000 ML IV SCH (16:41)
[2022-04-29 18:00] VITALS: BP 112/39
[2022-04-29] MEDS: ZONISAMIDE 50 MG CAP (ZONEGRAN) PO SCH (19:11)
[2022-04-29] MEDS: PHENYTOIN ER 100 MG CAP PO SCH (19:11)
[2022-04-30] MEDS: PIPERACILLIN/TAZOBACTAM SOD 3.375 GM in D5W MINI-BAG PLUS 50 ML IV SCH ×4 (03:31→21:34)
[2022-04-30 06:50] VITALS: BP 126/59
[2022-04-30] MEDS: D5W/0.9% SODIUM CHLORIDE 1,000 ML IV SCH (06:54)
[2022-04-30 07:19] LABS: BASO % 0.3 % (0.0-1.0); EOS # 0.2 10^3/uL (0.0-0.5); EOS % 2.1 % (0.0-3.0); HEMATOCRIT 33.9 % (42.0-52.0); HEMOGLOBIN 10.7 g/dl (13.5-17.5); LYMPH # 1.3 10^3/uL (1.5-5.0); LYMPH % 16.9 % (24.0-44.0); MEAN CORPUSCULAR HEMOGLOBIN 31.8 pg (27.0-33.0); MEAN CORPUSCULAR HGB CONC 31.6 g/dl (32.0-36.5); MEAN CORPUSCULAR VOLUME 100.9 fl (80.0-96.0); MONO # 0.6 10^3/uL (0.0-0.8); NEUTROPHILS # 5.4 10^3/uL (1.5-8.5); NEUTROPHILS % 72.4 % (36.0-66.0); PLATELET COUNT, AUTOMATED 181 10^3/uL (150-450); RED BLOOD COUNT 3.36 10^6/uL (4.30-6.10); WHITE BLOOD COUNT 7.5 10^3/uL (4.0-10.0)
[2022-04-30 07:44] LABS: ALBUMIN 2.1 G/DL (3.2-5.2); ALT/SGPT 63 U/L (7.0-40); BILIRUBIN,TOTAL 0.3 MG/DL (0.3-1.2); BLOOD UREA NITROGEN 13 MG/DL (9-23); CALCIUM LEVEL 8.6 MG/DL (8.3-10.6); CARBON DIOXIDE LEVEL 33 MMOL/L (20-31); CHLORIDE LEVEL 107 MMOL/L (98-107); CREATININE FOR GFR 0.71 MG/DL (0.70-1.30); GLOMERULAR FILTRATION RATE > 60.0 (>35); GLUCOSE, FASTING 141 MG/DL (74-106); POTASSIUM SERUM 3.6 MMOL/L (3.5-5.1); SODIUM LEVEL 145 MMOL/L (136-145); TOTAL PROTEIN 5.1 G/DL (5.7-8.2)
[2022-04-30] MEDS: TIOTROPIUM INHALER/CAPSULE (SPIRIVA) INH SCH (08:38)
[2022-04-30] MEDS: PANTOPRAZOLE 40MG VIAL IV SCH (08:47)
[2022-04-30] MEDS: MULTIVITAMINS/MINERALS THERAP 1 TAB PO SCH (08:48)
[2022-04-30] MEDS: ASPIRIN 81MG ENTERIC TABLET PO SCH (08:48)
[2022-04-30] MEDS: MONTELUKAST 10 MG TAB PO SCH (08:48)
[2022-04-30] MEDS: ENOXAPARIN 40MG/0.4ML SYRINGE (J1650 PER 10MG) SC SCH (08:48)
[2022-04-30] MEDS: OMEGA-3 1000MG CAPSULE PO SCH (08:48)
[2022-04-30] MEDS: levETIRAcetam 250MG TABLET (KEPPRA) PO SCH ×2 (08:48→21:33)
[2022-04-30] MEDS: CLOPIDOGREL 75 MG TAB PO SCH (08:48)
[2022-04-30] MEDS: GABAPENTIN 400MG CAP PO SCH ×2 (08:48→21:32)
[2022-04-30] MEDS: FLUTICASONE PROP 0.05% NASAL SPRAY 16 GM (FLONASE) SCH (08:49)
[2022-04-30] MEDS: PHENYTOIN ER 100 MG CAP PO SCH ×2 (13:15→21:33)
[2022-04-30 14:00] VITALS: BP 120/59
[2022-04-30] MEDS: ZONISAMIDE 50 MG CAP (ZONEGRAN) PO SCH (21:33)
[2022-04-30 22:00] VITALS: BP 125/61
[2022-05-01] MEDS: PIPERACILLIN/TAZOBACTAM SOD 3.375 GM in D5W MINI-BAG PLUS 50 ML IV SCH ×4 (04:51→21:24)
[2022-05-01 06:00] VITALS: BP 122/62
[2022-05-01 07:26] LABS: BASO % 0.5 % (0.0-1.0); EOS # 0.3 10^3/uL (0.0-0.5); EOS % 3.2 % (0.0-3.0); HEMATOCRIT 35.4 % (42.0-52.0); HEMOGLOBIN 11.4 g/dl (13.5-17.5); LYMPH # 1.2 10^3/uL (1.5-5.0); LYMPH % 15.1 % (24.0-44.0); MEAN CORPUSCULAR HEMOGLOBIN 31.8 pg (27.0-33.0); MEAN CORPUSCULAR HGB CONC 32.2 g/dl (32.0-36.5); MEAN CORPUSCULAR VOLUME 98.9 fl (80.0-96.0); MONO # 0.7 10^3/uL (0.0-0.8); MONO % 8.4 % (2.0-8.0); NEUTROPHILS # 5.7 10^3/uL (1.5-8.5); NEUTROPHILS % 72.4 % (36.0-66.0); PLATELET COUNT, AUTOMATED 219 10^3/uL (150-450); RED BLOOD COUNT 3.58 10^6/uL (4.30-6.10); WHITE BLOOD COUNT 7.9 10^3/uL (4.0-10.0)
[2022-05-01] MEDS: TIOTROPIUM INHALER/CAPSULE (SPIRIVA) INH SCH (07:38)
[2022-05-01 07:39] VITALS: O2SAT 94
[2022-05-01 08:03] LABS: ALBUMIN 2.1 G/DL (3.2-5.2); ALT/SGPT 99 U/L (7.0-40); BILIRUBIN,TOTAL 0.3 MG/DL (0.3-1.2); BLOOD UREA NITROGEN 6 MG/DL (9-23); CALCIUM LEVEL 8.9 MG/DL (8.3-10.6); CARBON DIOXIDE LEVEL 35 MMOL/L (20-31); CHLORIDE LEVEL 106 MMOL/L (98-107); CREATININE FOR GFR 0.63 MG/DL (0.70-1.30); GLOMERULAR FILTRATION RATE > 60.0 (>35); GLUCOSE, FASTING 112 MG/DL (74-106); POTASSIUM SERUM 3.6 MMOL/L (3.5-5.1); SODIUM LEVEL 145 MMOL/L (136-145); TOTAL PROTEIN 5.3 G/DL (5.7-8.2)
[2022-05-01] MEDS: ASPIRIN 81MG ENTERIC TABLET PO SCH (09:56)
[2022-05-01] MEDS: PANTOPRAZOLE 40MG VIAL IV SCH (09:56)
[2022-05-01] MEDS: ENOXAPARIN 40MG/0.4ML SYRINGE (J1650 PER 10MG) SC SCH (09:56)
[2022-05-01] MEDS: MULTIVITAMINS/MINERALS THERAP 1 TAB PO SCH (09:57)
[2022-05-01] MEDS: levETIRAcetam 250MG TABLET (KEPPRA) PO SCH ×2 (09:57→20:19)
[2022-05-01] MEDS: FLUTICASONE PROP 0.05% NASAL SPRAY 16 GM (FLONASE) SCH (09:57)
[2022-05-01] MEDS: MONTELUKAST 10 MG TAB PO SCH (09:57)
[2022-05-01] MEDS: CLOPIDOGREL 75 MG TAB PO SCH (09:57)
[2022-05-01] MEDS: PHENYTOIN ER 100 MG CAP PO SCH ×2 (09:57→20:20)
[2022-05-01] MEDS: OMEGA-3 1000MG CAPSULE PO SCH (09:57)
[2022-05-01] MEDS: GABAPENTIN 400MG CAP PO SCH ×2 (09:57→20:20)
[2022-05-01 14:00] VITALS: BP 125/63
[2022-05-01] MEDS: ZONISAMIDE 50 MG CAP (ZONEGRAN) PO SCH (20:19)
[2022-05-01 22:00] VITALS: BP 127/64
[2022-05-02] MEDS: PIPERACILLIN/TAZOBACTAM SOD 3.375 GM in D5W MINI-BAG PLUS 50 ML IV SCH (04:09)
[2022-05-02 06:00] VITALS: BP 124/65
[2022-05-02] MEDS: GASTROGRAFIN SOLUTION 30ML PO SCH ×2 (06:01→06:30)
[2022-05-02 06:25] LABS: BASO % 0.5 % (0.0-1.0); EOS # 0.3 10^3/uL (0.0-0.5); EOS % 3.8 % (0.0-3.0); HEMATOCRIT 36.4 % (42.0-52.0); HEMOGLOBIN 11.8 g/dl (13.5-17.5); LYMPH # 1.6 10^3/uL (1.5-5.0); LYMPH % 20.2 % (24.0-44.0); MEAN CORPUSCULAR HEMOGLOBIN 32.1 pg (27.0-33.0); MEAN CORPUSCULAR HGB CONC 32.4 g/dl (32.0-36.5); MEAN CORPUSCULAR VOLUME 98.9 fl (80.0-96.0); MONO # 0.6 10^3/uL (0.0-0.8); MONO % 7.3 % (2.0-8.0); NEUTROPHILS # 5.2 10^3/uL (1.5-8.5); NEUTROPHILS % 67.7 % (36.0-66.0); PLATELET COUNT, AUTOMATED 248 10^3/uL (150-450); RED BLOOD COUNT 3.68 10^6/uL (4.30-6.10); WHITE BLOOD COUNT 7.7 10^3/uL (4.0-10.0)
[2022-05-02 07:05] LABS: ALBUMIN 2.2 G/DL (3.2-5.2); ALT/SGPT 77 U/L (7.0-40); BILIRUBIN,TOTAL 0.2 MG/DL (0.3-1.2); BLOOD UREA NITROGEN 11 MG/DL (9-23); CALCIUM LEVEL 8.1 MG/DL (8.3-10.6); CARBON DIOXIDE LEVEL 34 MMOL/L (20-31); CHLORIDE LEVEL 104 MMOL/L (98-107); CREATININE FOR GFR 0.66 MG/DL (0.70-1.30); GLOMERULAR FILTRATION RATE > 60.0 (>35); GLUCOSE, FASTING 116 MG/DL (74-106); SODIUM LEVEL 144 MMOL/L (136-145); TOTAL PROTEIN 5.5 G/DL (5.7-8.2)
[2022-05-02] MEDS: TIOTROPIUM INHALER/CAPSULE (SPIRIVA) INH SCH (07:22)
[2022-05-02] MEDS ORDERED: FUROSEMIDE 40MG/4ML VIAL (J1940) IV ONE (10:20)
[2022-05-02] MEDS: ASPIRIN 81MG ENTERIC TABLET PO SCH (10:29)
[2022-05-02] MEDS: GABAPENTIN 400MG CAP PO SCH ×2 (10:29→20:52)
[2022-05-02] MEDS: MONTELUKAST 10 MG TAB PO SCH (10:29)
[2022-05-02] MEDS: levETIRAcetam 250MG TABLET (KEPPRA) PO SCH ×2 (10:29→20:52)
[2022-05-02] MEDS: MULTIVITAMINS/MINERALS THERAP 1 TAB PO SCH (10:30)
[2022-05-02] MEDS: CLOPIDOGREL 75 MG TAB PO SCH (10:30)
[2022-05-02] MEDS: OMEGA-3 1000MG CAPSULE PO SCH (10:30)
[2022-05-02] MEDS: PANTOPRAZOLE 40MG VIAL IV SCH (10:31)
[2022-05-02] MEDS: ENOXAPARIN 40MG/0.4ML SYRINGE (J1650 PER 10MG) SC SCH (10:31)
[2022-05-02] MEDS: PHENYTOIN ER 100 MG CAP PO SCH ×2 (10:31→20:51)
[2022-05-02] MEDS: FLUTICASONE PROP 0.05% NASAL SPRAY 16 GM (FLONASE) SCH (10:32)
[2022-05-02 11:48] VITALS: BP 137/65
[2022-05-02] MEDS: AUGMENTIN 875 MG TAB PO SCH ×2 (11:49→20:52)
[2022-05-02 14:00] VITALS: BP 107/66
[2022-05-02] MEDS: ZONISAMIDE 50 MG CAP (ZONEGRAN) PO SCH (20:51)
[2022-05-02 21:00] VITALS: BP 123/71
[2022-05-03 05:05] VITALS: BP 110/66
[2022-05-03 06:32] LABS: BASO # 0.1 10^3/uL (0.0-0.2); BASO % 0.7 % (0.0-1.0); EOS # 0.4 10^3/uL (0.0-0.5); EOS % 4.4 % (0.0-3.0); HEMATOCRIT 38.1 % (42.0-52.0); HEMOGLOBIN 12.3 g/dl (13.5-17.5); LYMPH # 1.7 10^3/uL (1.5-5.0); LYMPH % 19.7 % (24.0-44.0); MEAN CORPUSCULAR HEMOGLOBIN 31.5 pg (27.0-33.0); MEAN CORPUSCULAR HGB CONC 32.3 g/dl (32.0-36.5); MEAN CORPUSCULAR VOLUME 97.7 fl (80.0-96.0); MONO # 0.7 10^3/uL (0.0-0.8); MONO % 7.7 % (2.0-8.0); NEUTROPHILS # 5.8 10^3/uL (1.5-8.5); NEUTROPHILS % 66.8 % (36.0-66.0); PLATELET COUNT, AUTOMATED 307 10^3/uL (150-450); WHITE BLOOD COUNT 8.6 10^3/uL (4.0-10.0)
[2022-05-03 07:01] LABS: ALBUMIN 2.3 G/DL (3.2-5.2); ALT/SGPT 67 U/L (7.0-40); BILIRUBIN,TOTAL 0.2 MG/DL (0.3-1.2); BLOOD UREA NITROGEN 17 MG/DL (9-23); CALCIUM LEVEL 8.3 MG/DL (8.3-10.6); CARBON DIOXIDE LEVEL 34 MMOL/L (20-31); CHLORIDE LEVEL 101 MMOL/L (98-107); CREATININE FOR GFR 0.61 MG/DL (0.70-1.30); GLOMERULAR FILTRATION RATE > 60.0 (>35); GLUCOSE, FASTING 107 MG/DL (74-106); POTASSIUM SERUM 4.2 MMOL/L (3.5-5.1); SODIUM LEVEL 142 MMOL/L (136-145); TOTAL PROTEIN 5.9 G/DL (5.7-8.2)
[2022-05-03] MEDS: OMEGA-3 1000MG CAPSULE PO SCH (08:35)
[2022-05-03] MEDS: MULTIVITAMINS/MINERALS THERAP 1 TAB PO SCH (08:35)
[2022-05-03] MEDS: ASPIRIN 81MG ENTERIC TABLET PO SCH (08:35)
[2022-05-03] MEDS: levETIRAcetam 250MG TABLET (KEPPRA) PO SCH ×2 (08:35→20:15)
[2022-05-03] MEDS: AUGMENTIN 875 MG TAB PO SCH ×2 (08:35→20:13)
[2022-05-03] MEDS: CLOPIDOGREL 75 MG TAB PO SCH (08:36)
[2022-05-03] MEDS: GABAPENTIN 400MG CAP PO SCH ×2 (08:36→20:14)
[2022-05-03] MEDS: PANTOPRAZOLE 40MG VIAL IV SCH (08:36)
[2022-05-03] MEDS: MONTELUKAST 10 MG TAB PO SCH (08:36)
[2022-05-03] MEDS: FLUTICASONE PROP 0.05% NASAL SPRAY 16 GM (FLONASE) SCH (08:36)
[2022-05-03] MEDS: ENOXAPARIN 40MG/0.4ML SYRINGE (J1650 PER 10MG) SC SCH (08:37)
[2022-05-03] MEDS: TIOTROPIUM INHALER/CAPSULE (SPIRIVA) INH SCH (09:47)
[2022-05-03] MEDS ORDERED: AMOX875T2 PO (10:20)
[2022-05-03 14:00] VITALS: BP 113/66
[2022-05-03] MEDS: ZONISAMIDE 50 MG CAP (ZONEGRAN) PO SCH (20:13)
[2022-05-03] MEDS: PHENYTOIN ER 100 MG CAP PO SCH (20:14)
[2022-05-03 22:00] VITALS: BP 134/81
[2022-05-04 05:00] VITALS: BP 113/69
[2022-05-04] MEDS: TIOTROPIUM INHALER/CAPSULE (SPIRIVA) INH SCH (07:26)
[2022-05-04] MEDS: PANTOPRAZOLE 40MG VIAL IV SCH (10:38)
[2022-05-04] MEDS: CLOPIDOGREL 75 MG TAB PO SCH (10:38)
[2022-05-04] MEDS: AUGMENTIN 875 MG TAB PO SCH (10:38)
[2022-05-04] MEDS: ENOXAPARIN 40MG/0.4ML SYRINGE (J1650 PER 10MG) SC SCH (10:38)
[2022-05-04] MEDS: PHENYTOIN ER 100 MG CAP PO SCH (10:39)
[2022-05-04] MEDS: MONTELUKAST 10 MG TAB PO SCH (10:39)
[2022-05-04] MEDS: MULTIVITAMINS/MINERALS THERAP 1 TAB PO SCH (10:39)
[2022-05-04] MEDS: OMEGA-3 1000MG CAPSULE PO SCH (10:39)
[2022-05-04] MEDS: levETIRAcetam 250MG TABLET (KEPPRA) PO SCH (10:39)
[2022-05-04] MEDS: GABAPENTIN 400MG CAP PO SCH (10:39)
[2022-05-04] MEDS: ASPIRIN 81MG ENTERIC TABLET PO SCH (10:40)
[2022-05-04] MEDS: FLUTICASONE PROP 0.05% NASAL SPRAY 16 GM (FLONASE) SCH (10:40)
[2022-05-04] MEDS ORDERED: BACI1CAP PO (13:13)
[2022-05-06] MEDS ORDERED: ZONISAMIDE 50 MG CAP (ZONEGRAN) PO SCH (21:00)
== END 2022-05-04 13:15 | disposition home or self-care (01) | DRG 445 ==
LOC: M ED 17:33 → M ED INP 22:45 → ENRESERV 04-28 00:28 → M MSPAV 04-28 01:58
PROVIDERS: ADMIT Internal Medicine; ATTEND General Practice
PROC: 0F9430Z Drainage of Gallbladder with Drainage Device, Percutaneous Approach (ICD-10-PCS; principal; 2022-05-02)
DX: K81.2 Acute cholecystitis with chronic cholecystitis (principal); J96.11 Chronic respiratory failure with hypoxia; K56.7 Ileus, unspecified; N39.0 Urinary tract infection, site not specified; J90 Pleural effusion, not elsewhere classified; K82.1 Hydrops of gallbladder; G30.9 Alzheimer's disease, unspecified; Z86.73 Personal history of transient ischemic attack (TIA), and cerebral infarction without residual deficits; G40.909 Epilepsy, unspecified, not intractable, without status epilepticus; J44.9 Chronic obstructive pulmonary disease, unspecified; Z99.81 Dependence on supplemental oxygen; I10 Essential (primary) hypertension; G47.33 Obstructive sleep apnea (adult) (pediatric); Z87.891 Personal history of nicotine dependence; K21.9 Gastro-esophageal reflux disease without esophagitis; Z20.822 Contact with and (suspected) exposure to COVID-19; Z79.82 Long term (current) use of aspirin; Z79.899 Other long term (current) drug therapy; Z88.8 Allergy status to other drugs, medicaments and biological substances; Z91.018 Allergy to other foods; F02.80 Dementia in other diseases classified elsewhere, unspecified severity, without behavioral disturbance, psychotic disturbance, mood disturbance, and anxiety; D63.8 Anemia in other chronic diseases classified elsewhere; E87.6 Hypokalemia

== ENCOUNTER → 2022-05-17 | Outpatient (CLI) | payer OTHER, MEDICARE ==
[~2022-05-17] MED LIST changes: +ALBU8.5H INH; +AMOX875T2 PO; +BACI1CAP PO; +FLUTISP; +GABA800T4 PO; +MONT10TA97 PO; +NEUR800T PO; +OMEGCAP4 PO; +PANT20TA6 PO; +VITMTA PO; +ZONI50CA11 PO; +oxygen
== END ==
LOC: M WUC 11:20
PROVIDERS: ATTEND Family Medicine
DX: J18.9 Pneumonia, unspecified organism (principal); J90 Pleural effusion, not elsewhere classified

== ENCOUNTER → 2022-05-31 | Outpatient (CLI) | payer OTHER | LOC: M PLAIMG 12:49 | PROVIDERS: ATTEND Family Medicine | DX: J90 Pleural effusion, not elsewhere classified (principal); K80.20 Calculus of gallbladder without cholecystitis without obstruction; Z95.828 Presence of other vascular implants and grafts; R91.8 Other nonspecific abnormal finding of lung field ==

== ENCOUNTER → 2022-06-14 | Outpatient (POV) | payer MEDICARE, OTHER ==
[~2022-06-14] VITALS: Ht 170.2 cm; Wt 76.8 kg
[2022-06-14 12:51] VITALS: BP 124/70
== END ==
LOC: M IRPOV 12:26
PROVIDERS: ATTEND Radiology Diagnostic Radiology
DX: Z43.4 Encounter for attention to other artificial openings of digestive tract (principal); Z88.8 Allergy status to other drugs, medicaments and biological substances; Z91.018 Allergy to other foods

== ENCOUNTER → 2022-06-21 | Outpatient (CLI) | payer MEDICARE ==
[2022-06-21 18:49] LABS: BASO # 0.1 10^3/uL (0.0-0.2); EOS # 0.3 10^3/uL (0.0-0.5); EOS % 4.8 % (0.0-3.0); HEMATOCRIT 42.4 % (42.0-52.0); HEMOGLOBIN 13.5 g/dl (13.5-17.5); LYMPH # 2.5 10^3/uL (1.5-5.0); MEAN CORPUSCULAR HEMOGLOBIN 31.5 pg (27.0-33.0); MEAN CORPUSCULAR HGB CONC 31.8 g/dl (32.0-36.5); MEAN CORPUSCULAR VOLUME 98.8 fl (80.0-96.0); MONO # 0.5 10^3/uL (0.0-0.8); MONO % 7.7 % (2.0-8.0); NEUTROPHILS # 3.4 10^3/uL (1.5-8.5); NEUTROPHILS % 49.4 % (36.0-66.0); PLATELET COUNT, AUTOMATED 233 10^3/uL (150-450); RED BLOOD COUNT 4.29 10^6/uL (4.30-6.10); WHITE BLOOD COUNT 6.9 10^3/uL (4.0-10.0)
[2022-06-21 19:41] LABS: PHENYTOIN (DILANTIN) 8.6 UG/ML (10.0-20.0)
[2022-06-21 19:49] LABS: ALBUMIN 3.9 G/DL (3.2-5.2); ALKALINE PHOSPHATASE 94 U/L (46-116); ALT/SGPT 33 U/L (7.0-40); AST/SGOT 18 U/L (<34); BILIRUBIN,TOTAL 0.2 MG/DL (0.3-1.2); BLOOD UREA NITROGEN 23 MG/DL (9-23); CALCIUM LEVEL 9.2 MG/DL (8.3-10.6); CARBON DIOXIDE LEVEL 35 MMOL/L (20-31); CHLORIDE LEVEL 101 MMOL/L (98-107); CREATININE FOR GFR 0.65 MG/DL (0.70-1.30); GLOMERULAR FILTRATION RATE > 60.0 (>35); GLUCOSE, FASTING 82 MG/DL (74-106); POTASSIUM SERUM 4.1 MMOL/L (3.5-5.1); SODIUM LEVEL 142 MMOL/L (136-145); TOTAL PROTEIN 7.1 G/DL (5.7-8.2)
== END ==
LOC: M WUC 13:04
PROVIDERS: ATTEND Psychiatry & Neurology Neurology
DX: R56.9 Unspecified convulsions (principal); Z79.899 Other long term (current) drug therapy

== ENCOUNTER → 2022-06-23 | Outpatient (CLI) | payer MEDICARE, OTHER | LOC: M LABSMTC 09:16 | PROVIDERS: ATTEND Anesthesiology | DX: Z01.812 Encounter for preprocedural laboratory examination (principal); Z20.822 Contact with and (suspected) exposure to COVID-19 ==

== ENCOUNTER 2022-06-28 05:56 | Day surgery (SDC) | payer MEDICARE, OTHER ==
[2022-06-28] VITALS (8 sets, daily range): BP systolic 118–129; BP diastolic 49–67
[~2022-06-28] VITALS: Ht 177.8 cm; Wt 70.4 kg
[2022-06-28] MEDS ORDERED: AMPICILLIN SOD/SULBACTAM SOD 3 GM in D5W MINI-BAG PLUS 100 ML IV ONE (06:00)
[2022-06-28] MEDS ORDERED: CelecoXIB 400 MG CAP PO ONE (06:00)
[2022-06-28] MEDS ORDERED: LR 1,000 ML IV SCH ×2 (06:30→11:30)
[2022-06-28] MEDS ORDERED: SUGAMMADEX SODIUM 500 MG/5 ML VIAL (BRIDION) As Ordered ONE (07:11)
[2022-06-28] MEDS ORDERED: propofoL 200 MG/20 ML VIAL As Ordered ONE (07:11)
[2022-06-28] MEDS ORDERED: ETOMIDATE INJ 20MG/10ML VIAL As Ordered ONE (07:11)
[2022-06-28] MEDS ORDERED: ONDANSETRON 4MG 2ML VIAL As Ordered ONE (07:11)
[2022-06-28] MEDS ORDERED: ROCURONIUM BROMIDE 50MG/5ML VIAL As Ordered ONE ×2 (07:11→08:35)
[2022-06-28] MEDS ORDERED: LIDOCAINE 2% 100MG/5ML SDV (FOR ANES.) As Ordered ONE (07:11)
[2022-06-28] MEDS ORDERED: fentaNYL 100 MCG/2 ML INJECTION As Ordered ONE (07:11)
[2022-06-28] MEDS ORDERED: BUPIVACAINE HCL 0.25% 30ML VIAL As Ordered ONE (07:12)
[2022-06-28] MEDS ORDERED: LIDOCAINE 1% MDV 20ML VIAL As Ordered ONE (07:12)
[2022-06-28] MEDS ORDERED: ACETAMINOPHEN 1000MG 100ML IV BAG As Ordered ONE (07:18)
[2022-06-28] MEDS ORDERED: INDOCYANINE GREEN 25MG VIAL (IC-GREEN) As Ordered ONE (07:23)
[2022-06-28] MEDS ORDERED: HYDROMORPHONE HCL 0.5 MG/ 0.5 ML SYRINGE IV PRN (11:30)
[2022-06-28] MEDS ORDERED: fentaNYL 100 MCG/2 ML INJECTION IV PRN (11:30)
[2022-06-28] MEDS ORDERED: oxyCODONE 5MG TAB PO PRN (11:30)
[2022-06-28] MEDS ORDERED: ONDANSETRON 4MG 2ML VIAL IV PRN ×2 (11:30→11:35)
[2022-06-28] MEDS ORDERED: ALBUTEROL 90 MCG/ACT 8GM HFA INHALER INH PRN (11:35)
[2022-06-28] MEDS ORDERED: NORCO, ANEXSIA 5/325MG TABLET (HYDROcodone/ACETAMINOPHEN) PO PRN ×2 (11:35)
[2022-06-28] MEDS ORDERED: ACETAMINOPHEN TAB 650MG DOSE (2X325MG) PO PRN (11:35)
[2022-06-28] MEDS ORDERED: PHENYTOIN ER 100 MG CAP PO SCH ×2 (13:00→21:00)
[2022-06-28] MEDS: KETOROLAC 30 MG/ML 1ML VIAL IV SCH ×2 (15:04→22:03)
[2022-06-28] MEDS: AMPICILLIN SOD/SULBACTAM SOD 3 GM in D5W MINI-BAG PLUS 100 ML IV SCH ×2 (15:04→20:06)
[2022-06-28] MEDS: LR 1,000 ML IV SCH ×2 (15:05→21:35)
[2022-06-28] MEDS ORDERED: GABA-283 PO (19:08)
[2022-06-28] MEDS ORDERED: CYAN100049 PO (19:10)
[2022-06-28] MEDS ORDERED: HOME MED LIST COMPLETE! XX SCH (19:15)
[2022-06-28] MEDS: levETIRAcetam 250MG TABLET (KEPPRA) PO SCH (20:05)
[2022-06-28] MEDS: DOCUSATE SODIUM 100MG CAPSULE PO SCH (20:06)
[2022-06-28] MEDS ORDERED: GABAPENTIN 400MG CAP PO SCH (21:00)
[2022-06-29] MEDS: LR 1,000 ML IV SCH (01:33)
[2022-06-29] MEDS: AMPICILLIN SOD/SULBACTAM SOD 3 GM in D5W MINI-BAG PLUS 100 ML IV SCH ×2 (02:34→09:56)
[2022-06-29 03:52] VITALS: BP 123/59
[2022-06-29] MEDS: KETOROLAC 30 MG/ML 1ML VIAL IV SCH (05:44)
[2022-06-29 06:12] LABS: BASO % 0.5 % (0.0-1.0); EOS # 0.1 10^3/uL (0.0-0.5); EOS % 1.3 % (0.0-3.0); HEMATOCRIT 34.9 % (42.0-52.0); HEMOGLOBIN 11.5 g/dl (13.5-17.5); LYMPH # 0.8 10^3/uL (1.5-5.0); LYMPH % 10.4 % (24.0-44.0); MEAN CORPUSCULAR HEMOGLOBIN 32.2 pg (27.0-33.0); MEAN CORPUSCULAR VOLUME 97.8 fl (80.0-96.0); MONO # 0.6 10^3/uL (0.0-0.8); MONO % 7.4 % (2.0-8.0); NEUTROPHILS % 79.9 % (36.0-66.0); PLATELET COUNT, AUTOMATED 137 10^3/uL (150-450); RED BLOOD COUNT 3.57 10^6/uL (4.30-6.10); WHITE BLOOD COUNT 7.5 10^3/uL (4.0-10.0)
[2022-06-29 06:31] LABS: BILIRUBIN,DIRECT 0.1 MG/DL (<0.4)
[2022-06-29 06:32] LABS: ALBUMIN 2.7 G/DL (3.2-5.2); ALKALINE PHOSPHATASE 78 U/L (46-116); ALT/SGPT 42 U/L (7.0-40); AST/SGOT 33 U/L (<34); BILIRUBIN,TOTAL 0.5 MG/DL (0.3-1.2); BLOOD UREA NITROGEN 11 MG/DL (9-23); CALCIUM LEVEL 7.8 MG/DL (8.3-10.6); CARBON DIOXIDE LEVEL 31 MMOL/L (20-31); CHLORIDE LEVEL 104 MMOL/L (98-107); CREATININE FOR GFR 0.56 MG/DL (0.70-1.30); GLOMERULAR FILTRATION RATE > 60.0 (>35); GLUCOSE, FASTING 122 MG/DL (74-106); POTASSIUM SERUM 3.5 MMOL/L (3.5-5.1); SODIUM LEVEL 141 MMOL/L (136-145); TOTAL PROTEIN 5.5 G/DL (5.7-8.2)
[2022-06-29 07:50] VITALS: BP 122/66
[2022-06-29] MEDS ORDERED: PANTOPRAZOLE 40MG VIAL IV SCH (09:00)
[2022-06-29] MEDS ORDERED: ASPIRIN 81MG ENTERIC TABLET PO SCH (09:00)
[2022-06-29] MEDS ORDERED: OMEGA-3 1000MG CAPSULE PO SCH (09:00)
[2022-06-29] MEDS ORDERED: MULTIVITAMINS/MINERALS THERAP 1 TAB PO SCH (09:00)
[2022-06-29] MEDS ORDERED: FLUTICASONE PROP 0.05% NASAL SPRAY 16 GM (FLONASE) SCH (09:00)
[2022-06-29] MEDS ORDERED: MONTELUKAST 10 MG TAB PO SCH (09:00)
[2022-06-29] MEDS ORDERED: TIOTROPIUM INHALER/CAPSULE (SPIRIVA) INH SCH (09:00)
[2022-06-29] MEDS ORDERED: AMOX875T2 PO (09:42)
[2022-06-29] MEDS: DOCUSATE SODIUM 100MG CAPSULE PO SCH (09:46)
[2022-06-29] MEDS: levETIRAcetam 250MG TABLET (KEPPRA) PO SCH (09:46)
[2022-06-29 11:50] VITALS: BP 129/66
[2022-06-29] MEDS ORDERED: ZONISAMIDE 50 MG CAP (ZONEGRAN) PO SCH (21:00)
== END 2022-06-29 13:21 | disposition home or self-care (01) ==
LOC: M SDC 05:56 → M MSPAV 14:57 → INTOOBSV 14:57 → UNDOADMOB 14:57 → UNDODISOB 06-29 13:21 → M SDC 06-29 13:21
PROVIDERS: ATTEND Surgery
DX: K81.2 Acute cholecystitis with chronic cholecystitis (principal); I10 Essential (primary) hypertension; E78.5 Hyperlipidemia, unspecified; I73.9 Peripheral vascular disease, unspecified; J44.9 Chronic obstructive pulmonary disease, unspecified; K21.9 Gastro-esophageal reflux disease without esophagitis; G40.909 Epilepsy, unspecified, not intractable, without status epilepticus; Z79.02 Long term (current) use of antithrombotics/antiplatelets; Z79.899 Other long term (current) drug therapy; Z86.73 Personal history of transient ischemic attack (TIA), and cerebral infarction without residual deficits; Z91.010 Allergy to peanuts; Z88.8 Allergy status to other drugs, medicaments and biological substances
CPT/HCPCS: 36415; 47562; 80053; 82248; 85025; 88304; 94640; 96361; 96365; 96366; 96375; 96376; C9113; J1100; J2405; Q9968; S2900

== ENCOUNTER → 2022-12-08 | Outpatient (CLI) | payer MEDICARE ==
[~2022-12-08] MED LIST changes: +CYAN100049 PO; +FLUT50SP17; -FLUTISP; +GABA-283 PO
[2022-12-08 13:48] LABS: BASO # 0.1 10^3/uL (0.0-0.2); BASO % 1.3 % (0.0-1.0); EOS # 0.3 10^3/uL (0.0-0.5); EOS % 4.1 % (0.0-3.0); HEMATOCRIT 43.2 % (42.0-52.0); LYMPH # 2.3 10^3/uL (1.5-5.0); LYMPH % 35.7 % (24.0-44.0); MEAN CORPUSCULAR HEMOGLOBIN 32.2 pg (27.0-33.0); MEAN CORPUSCULAR HGB CONC 32.4 g/dl (32.0-36.5); MEAN CORPUSCULAR VOLUME 99.3 fl (80.0-96.0); MONO # 0.4 10^3/uL (0.0-0.8); MONO % 6.1 % (2.0-8.0); NEUTROPHILS # 3.3 10^3/uL (1.5-8.5); NEUTROPHILS % 52.5 % (36.0-66.0); PLATELET COUNT, AUTOMATED 202 10^3/uL (150-450); RED BLOOD COUNT 4.35 10^6/uL (4.30-6.10); WHITE BLOOD COUNT 6.4 10^3/uL (4.0-10.0)
[2022-12-08 14:07] LABS: ALBUMIN 3.8 G/DL (3.2-5.2); ALKALINE PHOSPHATASE 144 U/L (46-116); ALT/SGPT 47 U/L (7.0-40); AST/SGOT 22 U/L (<34); BILIRUBIN,TOTAL 0.4 MG/DL (0.3-1.2); BLOOD UREA NITROGEN 21 MG/DL (9-23); CALCIUM LEVEL 9.9 MG/DL (8.3-10.6); CARBON DIOXIDE LEVEL 31 MMOL/L (20-31); CHLORIDE LEVEL 103 MMOL/L (98-107); CREATININE FOR GFR 0.77 MG/DL (0.70-1.30); GLOMERULAR FILTRATION RATE > 60.0 (>35); GLUCOSE, FASTING 86 MG/DL (74-106); POTASSIUM SERUM 3.8 MMOL/L (3.5-5.1); SODIUM LEVEL 139 MMOL/L (136-145)
[2022-12-10 16:09] LABS: PHENYTOIN (DILANTIN) 13.3 ug/mL (10.0-20.0)
[2022-12-12 20:07] LABS: LEVETIRACETAM (KEPPRA) 67.5 ug/mL (10.0-40.0)
== END ==
LOC: M WUC 10:22
PROVIDERS: ATTEND Family Medicine
DX: G40.909 Epilepsy, unspecified, not intractable, without status epilepticus (principal)

== ENCOUNTER → 2023-01-18 | Outpatient (CLI) | payer MEDICARE ==
[~2023-01-18] MED LIST changes: -GABA-283 PO; +GABA-284 PO; -ROPI1TAB3 PO; +ROPI1TAB73 PO
== END ==
LOC: M RAD 17:12
PROVIDERS: ATTEND Student in an Organized Health Care Education/Training Program
DX: R09.89 Other specified symptoms and signs involving the circulatory and respiratory systems (principal)

== ENCOUNTER 2023-06-27 09:42 | Emergency (ER) | payer MEDICARE ==
[~2023-06-27] VITALS: Ht 170.2 cm; Wt 77.3 kg
[~2023-06-27 09:42] MED LIST changes: -FLUT50SP17; +FLUTISP NARES
[2023-06-27] MEDS ORDERED: PANT20TA6 PO (10:17)
[2023-06-27] MEDS ORDERED: SING5CHW23 PO (10:17)
[2023-06-27] MEDS ORDERED: BIMA01SOL OU ×2 (10:17→11:24)
[2023-06-27] MEDS ORDERED: KETO2SHA8 TOP (10:17)
[2023-06-27] MEDS ORDERED: DESMOPRESSIN ACETATE IV ONE (10:55)
[2023-06-27] MEDS ORDERED: NS IV ONE (10:55)
[2023-06-27 10:56] LABS: HEMATOCRIT 39.3 % (42.0-52.0); MEAN CORPUSCULAR HEMOGLOBIN 33.3 pg (27.0-33.0); MEAN CORPUSCULAR HGB CONC 33.1 g/dl (32.0-36.5); MEAN CORPUSCULAR VOLUME 100.8 fl (80.0-96.0); PLATELET COUNT, AUTOMATED 189 10^3/uL (150-450); WHITE BLOOD COUNT 6.7 10^3/uL (4.0-10.0)
[2023-06-27] MEDS ORDERED: niCARdipine IV 40 MG in IV 1 EA IV SCH (11:05)
[2023-06-27 11:08] LABS: PROTHROMBIN TIME 12.9 SECONDS (12.5-14.5)
[2023-06-27 11:24] LABS: BLOOD UREA NITROGEN 23 MG/DL (9-23); CALCIUM LEVEL 8.5 MG/DL (8.3-10.6); CARBON DIOXIDE LEVEL 34 MMOL/L (20-31); CHLORIDE LEVEL 104 MMOL/L (98-107); CREATININE FOR GFR 0.66 MG/DL (0.70-1.30); GLOMERULAR FILTRATION RATE > 60.0 (>35); GLUCOSE, FASTING 136 MG/DL (74-106); POTASSIUM SERUM 3.9 MMOL/L (3.5-5.1); SODIUM LEVEL 142 MMOL/L (136-145)
[2023-06-27] MEDS ORDERED: GABA800T4 PO (11:24)
[2023-06-27] MEDS ORDERED: MONT10TA97 PO (11:24)
[2023-06-27] MEDS ORDERED: VITMTA PO (11:24)
[2023-06-27] MEDS ORDERED: ZONI100C67 PO (11:30)
[2023-06-27] MEDS ORDERED: PANT20TA51 PO (11:30)
[2023-06-27 11:34] LABS: RSV AMPLIFICATION NEGATIVE (NEGATIVE)
[2023-06-27] MEDS ORDERED: HOME MED LIST COMPLETE! XX SCH (11:35)
[2023-06-27 12:08] VITALS: BP 128/61; TEMP 96.2; O2SAT 95
== END 2023-06-27 12:22 | disposition short-term general hospital (02) ==
LOC: M ED 09:42 → EDBD 09:42 → M ED 12:22
DX: S06.5X0A Traumatic subdural hemorrhage without loss of consciousness, initial encounter (principal); S01.81XA Laceration without foreign body of other part of head, initial encounter; W19.XXXA Unspecified fall, initial encounter; G40.909 Epilepsy, unspecified, not intractable, without status epilepticus; J44.9 Chronic obstructive pulmonary disease, unspecified; I10 Essential (primary) hypertension; F03.90 Unspecified dementia, unspecified severity, without behavioral disturbance, psychotic disturbance, mood disturbance, and anxiety; Y92.009 Unspecified place in unspecified non-institutional (private) residence as the place of occurrence of the external cause; Y93.9 Activity, unspecified; Y99.9 Unspecified external cause status; Z86.73 Personal history of transient ischemic attack (TIA), and cerebral infarction without residual deficits; Z86.79 Personal history of other diseases of the circulatory system; Z87.891 Personal history of nicotine dependence; Z91.010 Allergy to peanuts; Z88.8 Allergy status to other drugs, medicaments and biological substances; Z79.82 Long term (current) use of aspirin; Z79.810 Long term (current) use of selective estrogen receptor modulators (SERMs); Z79.899 Other long term (current) drug therapy
CPT/HCPCS: 70450; 72125; 80048; 85027; 85610; 85730; 87631; 96365; 99284; J2597

== ENCOUNTER → 2023-08-16 | Outpatient (CLI) | payer MEDICARE ==
[~2023-08-16] MED LIST changes: +KETO2SHA8 TOP; +MONT5TAB7 PO; +PANT20TA51 PO; +ZONI100C67 PO
[2023-08-16 10:20] LABS: BASO # 0.1 10^3/uL (0.0-0.2); BASO % 1.1 % (0.0-1.0); EOS # 0.3 10^3/uL (0.0-0.5); EOS % 4.5 % (0.0-3.0); HEMATOCRIT 46.2 % (42.0-52.0); HEMOGLOBIN 15.3 g/dl (13.5-17.5); LYMPH # 2.8 10^3/uL (1.5-5.0); LYMPH % 39.1 % (24.0-44.0); MEAN CORPUSCULAR HEMOGLOBIN 32.8 pg (27.0-33.0); MEAN CORPUSCULAR HGB CONC 33.1 g/dl (32.0-36.5); MEAN CORPUSCULAR VOLUME 99.1 fl (80.0-96.0); MONO # 0.5 10^3/uL (0.0-0.8); MONO % 7.1 % (2.0-8.0); NEUTROPHILS # 3.4 10^3/uL (1.5-8.5); NEUTROPHILS % 48.1 % (36.0-66.0); PLATELET COUNT, AUTOMATED 215 10^3/uL (150-450); RED BLOOD COUNT 4.66 10^6/uL (4.30-6.10); WHITE BLOOD COUNT 7.1 10^3/uL (4.0-10.0)
[2023-08-16 10:31] LABS: PHENYTOIN (DILANTIN) 30.9 UG/ML (10.0-20.0)
[2023-08-16 10:33] LABS: ALBUMIN 3.7 G/DL (3.2-5.2); ALKALINE PHOSPHATASE 127 U/L (46-116); ALT/SGPT 69 U/L (7.0-40); AST/SGOT 27 U/L (<34); BILIRUBIN,TOTAL 0.3 MG/DL (0.3-1.2); BLOOD UREA NITROGEN 23 MG/DL (9-23); CALCIUM LEVEL 8.9 MG/DL (8.3-10.6); CARBON DIOXIDE LEVEL 35 MMOL/L (20-31); CHLORIDE LEVEL 106 MMOL/L (98-107); CHOLESTEROL LEVEL 214 MG/DL (<200); CHOLESTEROL RISK RATIO 4.45 (<5); CREATININE FOR GFR 0.74 MG/DL (0.70-1.30); GLOMERULAR FILTRATION RATE > 60.0 (>35); GLUCOSE, FASTING 83 MG/DL (74-106); LDL CHOLESTEROL 140.2 MG/DL (<100); POTASSIUM SERUM 4.5 MMOL/L (3.5-5.1); SODIUM LEVEL 144 MMOL/L (136-145); TRIGLYCERIDES LEVEL 129 MG/DL (<150)
== END ==
LOC: M WUC 08:37
PROVIDERS: ATTEND Family Medicine
DX: E78.2 Mixed hyperlipidemia (principal); R56.9 Unspecified convulsions

== ENCOUNTER → 2023-10-13 | Outpatient (CLI) | payer MEDICARE ==
[~2023-10-13] MED LIST changes: +MEMA10TA PO; -MEMA10TA19 PO
[2023-10-13 12:30] LABS: BASO # 0.1 10^3/uL (0.0-0.2); BASO % 1.3 % (0.0-1.0); EOS # 0.3 10^3/uL (0.0-0.5); EOS % 3.7 % (0.0-3.0); HEMATOCRIT 46.4 % (42.0-52.0); HEMOGLOBIN 15.5 g/dl (13.5-17.5); LYMPH # 2.6 10^3/uL (1.5-5.0); LYMPH % 36.1 % (24.0-44.0); MEAN CORPUSCULAR HEMOGLOBIN 32.6 pg (27.0-33.0); MEAN CORPUSCULAR HGB CONC 33.4 g/dl (32.0-36.5); MEAN CORPUSCULAR VOLUME 97.7 fl (80.0-96.0); MONO # 0.5 10^3/uL (0.0-0.8); MONO % 6.8 % (2.0-8.0); NEUTROPHILS # 3.7 10^3/uL (1.5-8.5); PLATELET COUNT, AUTOMATED 202 10^3/uL (150-450); RED BLOOD COUNT 4.75 10^6/uL (4.30-6.10); WHITE BLOOD COUNT 7.1 10^3/uL (4.0-10.0)
[2023-10-13 12:57] LABS: PHENYTOIN (DILANTIN) 24.4 UG/ML (10.0-20.0)
[2023-10-13 13:01] LABS: ALBUMIN 3.6 G/DL (3.2-5.2); ALKALINE PHOSPHATASE 118 U/L (46-116); ALT/SGPT 72 U/L (7.0-40); AST/SGOT 36 U/L (<34); BILIRUBIN,TOTAL 0.4 MG/DL (0.3-1.2); BLOOD UREA NITROGEN 24 MG/DL (9-23); CALCIUM LEVEL 9.6 MG/DL (8.3-10.6); CARBON DIOXIDE LEVEL 32 MMOL/L (20-31); CHLORIDE LEVEL 105 MMOL/L (98-107); CREATININE FOR GFR 0.75 MG/DL (0.70-1.30); GLOMERULAR FILTRATION RATE > 60.0 (>35); GLUCOSE, FASTING 94 MG/DL (74-106); POTASSIUM SERUM 4.6 MMOL/L (3.5-5.1); SODIUM LEVEL 145 MMOL/L (136-145); TOTAL PROTEIN 7.1 G/DL (5.7-8.2)
== END ==
LOC: M WUC 09:09
PROVIDERS: ATTEND Psychiatry & Neurology Neurology
DX: R56.9 Unspecified convulsions (principal)

== ENCOUNTER → 2024-09-12 | Outpatient (CLI) | payer MEDICARE, OTHER ==
[~2024-09-12] MED LIST changes: +GABA-1172 PO; +GABA-1635 PO; -GABA-282 PO; -GABA800T4 PO
== END ==
LOC: M WUC 09:32
PROVIDERS: ATTEND Nurse Practitioner Family
DX: G40.909 Epilepsy, unspecified, not intractable, without status epilepticus (principal)

== ENCOUNTER → 2024-09-12 | Outpatient (CLI) | payer MEDICARE, OTHER ==
[2024-09-12 12:29] LABS: BASO # 0.1 10^3/uL (0.0-0.2); BASO % 1.1 % (0.0-1.0); EOS # 0.4 10^3/uL (0.0-0.5); EOS % 5.9 % (0.0-3.0); HEMATOCRIT 43.9 % (42.0-52.0); HEMOGLOBIN 14.6 g/dl (13.5-17.5); LYMPH # 2.1 10^3/uL (1.5-5.0); LYMPH % 33.6 % (24.0-44.0); MEAN CORPUSCULAR HEMOGLOBIN 32.6 pg (27.0-33.0); MEAN CORPUSCULAR HGB CONC 33.3 g/dl (32.0-36.5); MONO # 0.4 10^3/uL (0.0-0.8); MONO % 6.5 % (2.0-8.0); NEUTROPHILS # 3.2 10^3/uL (1.5-8.5); NEUTROPHILS % 52.6 % (36.0-66.0); PLATELET COUNT, AUTOMATED 221 10^3/uL (150-450); RED BLOOD COUNT 4.48 10^6/uL (4.30-6.10); WHITE BLOOD COUNT 6.1 10^3/uL (4.0-10.0)
[2024-09-12 12:51] LABS: HEMOGLOBIN A1c 4.9 % (4.0-6.0)
[2024-09-12 13:35] LABS: ALBUMIN 3.6 G/DL (3.2-5.2); ALKALINE PHOSPHATASE 95 U/L (40-129); ALT/SGPT 40 U/L (7.0-40); AST/SGOT 18 U/L (<34); BILIRUBIN,TOTAL 0.3 MG/DL (0.3-1.2); BLOOD UREA NITROGEN 23 MG/DL (9-23); CALCIUM LEVEL 9.2 MG/DL (8.3-10.6); CARBON DIOXIDE LEVEL 38 MMOL/L (20-31); CHLORIDE LEVEL 103 MMOL/L (98-107); CHOLESTEROL LEVEL 225 MG/DL (<200); CHOLESTEROL RISK RATIO 4.31 (<5); CREATININE FOR GFR 0.73 MG/DL (0.70-1.30); GLOMERULAR FILTRATION RATE > 60.0 (>35); GLUCOSE, FASTING 105 MG/DL (74-106); HDL CHOLESTEROL 52.2 MG/DL (>40); NON-HDL-C 172.8 MG/DL; POTASSIUM SERUM 4.6 MMOL/L (3.5-5.1); SODIUM LEVEL 144 MMOL/L (136-145); TOTAL PROTEIN 6.9 G/DL (5.7-8.2); TRIGLYCERIDES LEVEL 109 MG/DL (<150)
[2024-09-12 13:41] LABS: PHENYTOIN (DILANTIN) 21.4 UG/ML (10.0-20.0)
== END ==
LOC: M WUC 09:30
PROVIDERS: ATTEND Family Medicine
DX: Z00.00 Encounter for general adult medical examination without abnormal findings (principal); G43.909 Migraine, unspecified, not intractable, without status migrainosus; I10 Essential (primary) hypertension; E78.2 Mixed hyperlipidemia; K21.9 Gastro-esophageal reflux disease without esophagitis; J30.2 Other seasonal allergic rhinitis; M21.70 Unequal limb length (acquired), unspecified site; G40.909 Epilepsy, unspecified, not intractable, without status epilepticus; Z79.899 Other long term (current) drug therapy; R29.6 Repeated falls; Z79.82 Long term (current) use of aspirin; Z79.51 Long term (current) use of inhaled steroids; Z91.018 Allergy to other foods; Z88.8 Allergy status to other drugs, medicaments and biological substances; Z83.3 Family history of diabetes mellitus; Z87.891 Personal history of nicotine dependence

== ENCOUNTER → 2025-01-20 | Outpatient (REF) | payer MEDICARE, OTHER ==
[~2025-01-20] MED LIST changes: +KETO120S5 TOP; -KETO2SHA8 TOP
== END ==
LOC: M SFHCDERM 17:28
PROVIDERS: ATTEND Nurse Practitioner Family
DX: T14.8XXA Other injury of unspecified body region, initial encounter (principal); D49.2 Neoplasm of unspecified behavior of bone, soft tissue, and skin

== ENCOUNTER → 2025-02-07 | Outpatient (REF) | payer MEDICARE | LOC: M SFHCDERM 17:16 | PROVIDERS: ATTEND Nurse Practitioner Family | DX: L02.91 Cutaneous abscess, unspecified (principal) ==